=== PATIENT | female | born 1940 | race Caucasian/White ===

== ENCOUNTER → 2016-11-02 | Outpatient (CLI) | payer MEDICARE, BC ==
[2016-11-02 10:09] LABS: CH 29.3; CHCM 31.2; HCT 37.3 % (34.0-46.0); HDW 2.61; HGB 11.3 gm/dL (11.4-16.0); Hypochromasia Slight; MCH 28.6 pg (25.0-35.0); MCHC 30.3 g/dL (31.0-37.0); MCV 94.6 fL (80.0-100.0); Mean Platelet Volume 9.8; RBC 3.94 m/uL (3.80-5.40); RDW 13.8 % (11.5-15.5); WBC 9.2 k/uL (3.8-10.6)
[2016-11-02 10:15] LABS: Potassium 4.9 mmol/L (3.5-5.1)
== END | disposition home or self-care (01) ==
LOC: LABPAT 09:43
PROVIDERS: ATTEND Internal Medicine Interventional Cardiology
DX: Z01.812 Encounter for preprocedural laboratory examination (principal); I25.10 Atherosclerotic heart disease of native coronary artery without angina pectoris
CPT/HCPCS: 80051; 82565; 84520; 85027

== ENCOUNTER 2016-11-14 07:51 | Day surgery (SDC) | payer MEDICARE, BC ==
[2016-11-09 10:35] VITALS: BMI 34.7
[~2016-11-14 07:51] MED LIST: ALPRAZolam 0.25 MG TAB PO PRN; ALPRAZolam 0.5 MG TAB PO PRN; ASPIRIN 325 MG TAB PO STA; ATORVASTATIN 80 MG TAB PO STA; NITROGLYCERIN SL TABS 0.4 MG TAB SUBLINGUAL PRN
[2016-11-14 08:35] LABS: Glucose,Whole Blood 139 mg/dL (75-99)
[2016-11-14 09:00] LABS: Calcium 8.8 mg/dL (8.4-10.2)
[2016-11-14 09:19] LABS: Potassium 5.3 mmol/L (3.5-5.1)
[2016-11-14] MEDS ORDERED: SODIUM CHLORIDE 0.9% 1,000 ML in EMPTY BAG 1 BAG IV ONE (10:00)
[2016-11-14] MEDS ORDERED: diphenhydrAMINE 50 MG/ML 1 ML VIAL ONE (12:14)
[2016-11-14] MEDS ORDERED: LIDOCAINE 2% INJ 20 MG/ML (20 ML MDV) ONE (12:14)
[2016-11-14] MEDS ORDERED: MIDAZOLAM 2 MG/2 ML VIAL ONE (12:19)
[2016-11-14] MEDS ORDERED: diphenhydrAMINE 50 MG/ML 1 ML VIAL IVP ONE (12:24)
[2016-11-14] MEDS ORDERED: MIDAZOLAM 2 MG/2 ML VIAL IV ONE (12:25)
[2016-11-14] MEDS ORDERED: LIDOCAINE 2% INJ 20 MG/ML SQ ONE (12:26)
[2016-11-14] MEDS ORDERED: hydrALAZINE HCL 20 MG/ML 1 ML VIAL ONE (12:40)
[2016-11-14] MEDS: hydrALAZINE HCL 20 MG/ML 1 ML VIAL IV ONE ×2 (12:41→12:50)
[2016-11-14] MEDS ORDERED: IODIXANOL 320 MG/ML 100 ML INTRAARTER ONE (12:44)
[2016-11-14] MEDS ORDERED: RX INFO: IV CONTRAST WAS GIVEN 1 EACH MISC MISCELLANE PRN (12:51)
[2016-11-14] MEDS ORDERED: SODIUM CHLORIDE 0.9% 1,000 ML IV SCH (13:00)
[2016-11-14 13:25] VITALS: RESP 16
[2016-11-14] MEDS ORDERED: ACETAMINOPHEN TAB 325 MG TAB PO PRN (14:29)
[2016-11-14 20:55] VITALS: BP 120/42; PULSE 86; TEMP 99.6
--- NOTE | 2016-11-15 09:04 | CC ---
DATE OF SERVICE: 2016. PERFORMING PHYSICIAN: Tomas Mckinnon forensic document examiner. PROCEDURE PERFORMED: 1. Selective left and right coronary angiogram. 2. SVG angiogram x2. 3. Left intramammary artery angiogram. INDICATION: This is a pleasant 76-year-old female patient who is known to have coronary artery disease and prior coronary artery bypass grafting withy MARTI to LAD, SVG to ramus and SVG to RCA, was experiencing chest discomfort and she underwent myocardial perfusion imaging stress test which showed ischemia. Approach: Left common femoral artery. COMPLICATIONS: None. Level of sedation: Moderate. PROCEDURE DESCRIPTION: After obtaining informed consent, the patient was brought for cardiac. The left common femoral artery was cannulated micropuncture technique. The micropuncture wire passed easily. Then I placed 6 Nicaraguan sheath in the left common femoral artery. Subsequently I did selective left and right coronary angiogram using JL4 and JR4 catheters. Then I did SVG angiogram x2 using the JR4 catheter. Then MARTI to LAD was performed also. Angiogram was performed using the JR4 catheter. The procedure was completed without any complication. CORONARY ANGIOGRAM: 1. Left main the left main is calcified with disease in the range of 60%. It bifurcates into the left anterior descending artery and the left circumflex. 2. Left anterior descending artery is chronically occluded in the proximal portion. 3. The left circumflex is chronically occluded in the midportion. 4. The right coronary artery is occluded in the midportion as well. CORONARY BYPASS ANGIOGRAM: 1. The SVG to ramus is patent. 2. The SVG to RCA is patent. 3. MARTI to LAD is patent as well. CONCLUSION: 1. Severe triple-vessel coronary artery disease with occluded left anterior descending coronary artery, left circumflex and right coronary artery. 2. Patent left internal mammary artery to left anterior descending coronary artery. 3. Patent saphenous vein graft to ramus. 4. Patent saphenous vein graft to right coronary artery. 5. Findings unchanged compared to before. POSTPROCEDURE MANAGEMENT: 1. Maximize medical treatment. 2. Follow up with the patient.
== END 2016-11-14 20:45 | disposition home or self-care (01) ==
LOC: CATHCVL 07:51 → 3OBS 12:45 → CATHCVL 20:45
PROVIDERS: ATTEND Internal Medicine Interventional Cardiology
DX: I25.110 Atherosclerotic heart disease of native coronary artery with unstable angina pectoris (principal); R94.39 Abnormal result of other cardiovascular function study; Z95.1 Presence of aortocoronary bypass graft; Z95.5 Presence of coronary angioplasty implant and graft; I73.9 Peripheral vascular disease, unspecified; Z95.820 Peripheral vascular angioplasty status with implants and grafts; Z89.512 Acquired absence of left leg below knee; Z89.511 Acquired absence of right leg below knee; Z99.3 Dependence on wheelchair; I10 Essential (primary) hypertension; E78.5 Hyperlipidemia, unspecified; Z79.01 Long term (current) use of anticoagulants; Z79.82 Long term (current) use of aspirin; Z79.4 Long term (current) use of insulin; Z79.899 Other long term (current) drug therapy; Z88.5 Allergy status to narcotic agent; Z88.8 Allergy status to other drugs, medicaments and biological substances; Z87.891 Personal history of nicotine dependence
CPT/HCPCS: 93455; 80048; 99152; C1769 ×3; C1894; J2001; J2250; J0360; J1200; Q9967

== ENCOUNTER → 2016-12-21 | Outpatient (CLI) | payer MEDICARE, BC ==
[2016-12-21 15:50] LABS: Blood Urea Nitrogen 19 mg/dL (7-17); Non-African American GFR(MDRD) 52 (>60 ml/min/1.73 sqM)
--- NOTE | 2016-12-21 16:56 | CT ---
CT angiogram of the abdominal aorta with and without contrast HISTORY: Postop date of exam bypass graft Correlation to angiogram 05 Feb 2014 Helical acquisition obtained from the descending aorta through the lower extremities following contra st menstruation. 3-dimensional reconstructions performed on an alternate workstation. Descending aorta is patent. There is atheromatous plaque within the lumen. The celiac axis, superior mesenteric artery, renal arteries are patent. Common iliac, internal iliac arteries are patent. The l eft external iliac artery is patent, the right external iliac arteries occluded. There is a femoral t o femoral bypass graft which is patent. Distal to the anastomosis on the right the deep femoral arter ies are patent, superficial femoral artery shows a proximal stenosis but is patent and shows atheroma tous change. Peroneal artery on the right, proximal anterior tibial artery are patent. Anterior tibia l artery is not seen distally to be patent, posterior tibial artery is occluded. Peroneal artery is p atent to the level of the ankle. On the left the superficial femoral arteries occluded, deep femoral artery branches are patent and th e more distal branches in the leg are poorly enhanced. There is a hiatal hernia. Gallstone is thought present within the gallbladder. Degenerative disc tejada ges, facet arthropathy noted in the lower lumbar spine. IMPRESSION: Patent femoral to femoral bypass graft, extensive peripheral vascular occlusive disease. Additional findings above.
== END | disposition home or self-care (01) ==
LOC: RADCTMAIN 14:43
PROVIDERS: ATTEND Thoracic Surgery (Cardiothoracic Vascular Surgery)
DX: I73.9 Peripheral vascular disease, unspecified (principal); Z95.828 Presence of other vascular implants and grafts
CPT/HCPCS: 82565; 84520; 75635; 36415; Q9967

== ENCOUNTER → 2017-01-05 | Outpatient (CLI) | payer MEDICARE, BC ==
[2017-01-05 08:40] LABS: CH 29.4; CHCM 30.4; HCT 35.7 % (34.0-46.0); HDW 2.38; Hypochromasia Moderate; MCH 30.1 pg (25.0-35.0); MCHC 30.9 g/dL (31.0-37.0); MCV 97.3 fL (80.0-100.0); Mean Platelet Volume 9.4; RBC 3.67 m/uL (3.80-5.40); RDW 13.7 % (11.5-15.5); WBC 7.3 k/uL (3.8-10.6)
== END | disposition home or self-care (01) ==
LOC: LABPAT 08:02
PROVIDERS: ATTEND Internal Medicine Interventional Cardiology
DX: I73.9 Peripheral vascular disease, unspecified (principal)
CPT/HCPCS: 80051; 82565; 84520; 85027

== ENCOUNTER 2017-01-10 06:26 | Day surgery (SDC) | payer MEDICARE, BC ==
[2017-01-06 14:06] VITALS: BMI 30.2
[~2017-01-10 06:26] MED LIST changes: -ALPRAZolam 0.5 MG TAB PO PRN; -ATORVASTATIN 80 MG TAB PO STA; -NITROGLYCERIN SL TABS 0.4 MG TAB SUBLINGUAL PRN; +SODIUM CHLORIDE 0.9% 1,000 ML in EMPTY BAG 1 BAG IV ONE
[2017-01-10] MEDS ORDERED: SODIUM CHLORIDE 0.9% 500 ML IV ONE (07:00)
[2017-01-10 07:22] LABS: Glucose,Whole Blood 164 mg/dL (75-99)
[2017-01-10] MEDS ORDERED: MIDAZOLAM 2 MG/2 ML VIAL IV ONE (08:06)
[2017-01-10] MEDS ORDERED: LIDOCAINE 2% INJ 20 MG/ML SQ ONE (08:15)
[2017-01-10] MEDS: VERAPAMIL SYRINGE (5 MG/10 ML) INTRAARTER ONE ×2 (08:17→08:38)
[2017-01-10] MEDS ORDERED: IODIXANOL 320 MG/ML 100 ML INTRAARTER ONE (08:39)
[2017-01-10] MEDS ORDERED: SODIUM CHLORIDE 0.9% 1,000 ML IV SCH (09:15)
[2017-01-10 10:23] VITALS: TEMP 98
--- NOTE | 2017-01-10 10:43 | LTR ---
January 10, 2017 RE: Sujey Washburn Dear [place]; Ms. Sujey Washburn underwent a peripheral angiogram which showed patent fem-fem bypass with a sluggish flow. I do feel that the patient will benefit from doing balloon angioplasty of her left external iliac artery/left common femoral artery to increase the inflow to the bypass. Of course, this plan will be discussed with Dr. Castillo who is the primary physician seeing her regarding PAD. I want to thank you for allowing me to participate in her care and please do not hesitate to call if you have any question or concerns. Sincerely, ZOILA VILLA MD
--- NOTE | 2017-01-10 10:45 | IR ---
Fluoroscopy HISTORY: Pain 5 minutes 23 seconds fluoroscopy time supplied to the referring clinician. 319 intraoperative C-arm images document the procedure. See dictated report from cardiology.
--- NOTE | 2017-01-10 10:46 | PCN ---
DATE OF PROCEDURE: 01/10/2017 PERFORMING PHYSICIAN: Tomas Mckinnon MD, char filter operator. PROCEDURE PERFORMED: 1. Abdominal aortogram. 2. Bilateral lower extremity runoff. INDICATION: This is a pleasant 76-year-old female patient who is known to have severe peripheral arterial disease where she underwent in the past left iliac stenting and then she underwent a left to right fem-fem bypass was seen and evaluated by Dr. Castillo who was concerned about the flow in the fem-fem bypass. The angiogram is to have better clarification. APPROACH: Right radial artery. COMPLICATIONS: None. LEVEL OF SEDATION: Moderate. PROCEDURE DESCRIPTION: After obtaining informed consent, the patient was brought to the cardiac specialist employee labor relations. Right radial artery was cannulated using micropuncture technique. The micropuncture wire passed easily, then I placed a 5 Canadian sheath in the right radial artery. Subsequently, I gave the patient 3000 units of heparin IV and 2 mg of verapamil IA. I did after that an abdominal aortogram and bilateral lower extremity runoff using 5 Canadian pigtail catheter which was initially placed at the level of the renal arteries then it was advanced into above the bifurcation of the aorta to right and left common iliac arteries. The procedure was completed without any complication. SELECTIVE PERIPHERAL ANGIOGRAM: 1. The abdominal aorta is calcified with mild disease only. 2. Common iliac arteries: The right and left common iliac arteries appear to be patent. 3. External iliac arteries: The right external iliac artery appeared to be occluded and the left external iliac artery appeared to be stented with what seems to be severe disease just distal to the stent. 4. Common femoral arteries: The right common femoral artery appeared to be occluded and the left common femoral artery appeared to have severe disease. There was fem-fem bypass appeared to be patent with a sluggish flow. 5. The profunda: The right profunda is patent as well as the left profunda with severe disease involving the left profunda. 6. SFA: The right SFA is diffusely diseased up to about 70% to 80%. The left SFA is occluded from the ostium all the way to the popliteal and I was unable to visualize it after that. 7. The popliteals: The right popliteal appeared to have mild disease only and the left popliteal is occluded. 8. Below the knee: On the right side, she has only one vessel runoff below the knee with peroneal and on the left side, she has left [id number] amputation. CONCLUSION: 1. Severe aortoiliac disease with occluded right external iliac artery and severe disease involving the left external iliac artery. 2. Patent but sluggish flow in the left to right femorofemoral bypass. 3. Severe disease involving the right superficial femoral artery. POSTPROCEDURE MANAGEMENT: The angiogram will be evaluated by Dr. Castillo. I do feel that the patient will benefit from balloon angioplasty of the left external iliac/left common femoral artery to increase the inflow to the bypass.
[2017-01-10 13:15] VITALS: PULSE 55
[2017-01-10 16:10] VITALS: BP 150/70; RESP 20
== END 2017-01-10 15:30 | disposition home or self-care (01) ==
LOC: CATHCVL 06:26
PROVIDERS: ATTEND Internal Medicine Interventional Cardiology
DX: I73.9 Peripheral vascular disease, unspecified (principal); I74.5 Embolism and thrombosis of iliac artery; I77.9 Disorder of arteries and arterioles, unspecified; I74.8 Embolism and thrombosis of other arteries; I70.0 Atherosclerosis of aorta; Z95.820 Peripheral vascular angioplasty status with implants and grafts; I25.10 Atherosclerotic heart disease of native coronary artery without angina pectoris; Z95.1 Presence of aortocoronary bypass graft; Z95.5 Presence of coronary angioplasty implant and graft; R94.39 Abnormal result of other cardiovascular function study; I10 Essential (primary) hypertension; E78.5 Hyperlipidemia, unspecified; Z89.512 Acquired absence of left leg below knee; Z89.511 Acquired absence of right leg below knee; Z99.3 Dependence on wheelchair; Z79.02 Long term (current) use of antithrombotics/antiplatelets; Z79.82 Long term (current) use of aspirin; Z79.4 Long term (current) use of insulin; Z79.899 Other long term (current) drug therapy; Z88.5 Allergy status to narcotic agent; Z88.8 Allergy status to other drugs, medicaments and biological substances; Z87.891 Personal history of nicotine dependence
CPT/HCPCS: 99152; 99153 ×2; 36200; 75625; 75716; C1769 ×4; C1894 ×2; J2001; J2250; Q9967; J1644

== ENCOUNTER 2017-02-22 10:13 | Day surgery (SDC) | payer MEDICARE, BC ==
[2017-02-10 10:40] VITALS: BMI 32.9
[~2017-02-22 10:13] MED LIST changes: -ALPRAZolam 0.25 MG TAB PO PRN
[2017-02-22 10:50] LABS: Glucose,Whole Blood 82 mg/dL (75-99)
[2017-02-22 11:02] LABS: Calcium 8.9 mg/dL (8.4-10.2)
[2017-02-22] MEDS ORDERED: MIDAZOLAM 2 MG/2 ML VIAL IV ONE (13:07)
[2017-02-22] MEDS ORDERED: LIDOCAINE 2% INJ 20 MG/ML SQ ONE (13:09)
[2017-02-22] MEDS: VERAPAMIL SYRINGE (5 MG/10 ML) INTRAARTER ONE ×2 (13:11→13:49)
[2017-02-22] MEDS ORDERED: NITROGLYCERIN 1000MCG/10ML SYRINGE IV ONE (13:46)
[2017-02-22] MEDS ORDERED: niCARdipine Syringe (1,000 mcg/10 mL) IV ONE (13:47)
[2017-02-22] MEDS ORDERED: IODIXANOL 320 MG/ML 100 ML INTRAARTER ONE (13:50)
[2017-02-22] MEDS ORDERED: SODIUM CHLORIDE 0.9% 1,000 ML IV SCH (14:00)
[2017-02-22] MEDS: ACETAMINOPHEN TAB 325 MG TAB PO PRN (16:21)
[2017-02-22 16:50] LABS: Glucose,Whole Blood 146 mg/dL (75-99)
[2017-02-22] MEDS: INSULIN LISPRO (humaLOG) 300 UNIT/3 ML VIAL SQ SCH ×2 (17:53→21:33)
[2017-02-22] MEDS: GABAPENTIN 300 MG CAP PO SCH ×2 (17:53→21:33)
[2017-02-22 20:53] LABS: Glucose,Whole Blood 156 mg/dL (75-99)
[2017-02-22] MEDS ORDERED: ATORVASTATIN 80 MG TAB PO SCH (21:00)
[2017-02-22] MEDS ORDERED: PANTOPRAZOLE 40 MG TABLET PO SCH (21:00)
[2017-02-22] MEDS: METOPROLOL TARTRATE 25 MG TAB PO SCH (21:33)
[2017-02-23] MEDS: ACETAMINOPHEN TAB 325 MG TAB PO PRN (04:25)
[2017-02-23 04:53] VITALS: TEMP 97.2
--- NOTE | 2017-02-23 05:43 | PCN ---
DATE OF PROCEDURE: 02/22/2017 PERCUTANEOUS PERIPHERAL INTERVENTION PERFORMING PHYSICIAN: Tomas Mckinnon MD, control systems drafting officer. PROCEDURE PERFORMED: 1. Selective right common femoral artery angiogram. 2. An attempted atherectomy of the right common femoral artery. 3. Successful balloon angioplasty of the right common femoral artery using 5.0 x 40 mm AngioSculpt balloon with excellent angiographic results. INDICATION: This is a pleasant 76-year-old female patient who is known to have peripheral arterial disease where she underwent in the past stenting of the left external iliac artery as well as fem-fem bypass was seen and evaluated by Dr. Castillo and was found to have sluggish flow through the bypass by Doppler. She underwent after that a peripheral angiogram which showed severe disease involving the inflow to the fem-fem bypass. The disease was involving the ( ) distal left external and distal left common femoral artery. She was brought today to undergo balloon angioplasty. APPROACH: Right radial artery. COMPLICATIONS: None. LEVEL OF SEDATION: Moderate with sedation length of 46 minutes. PROCEDURE DESCRIPTION: After obtaining an informed consent, the patient was brought to the cardiac logging rafter laborer. Right radial artery was cannulated using micropuncture technique and micropuncture wire passed easily, then I placed 6 Swazi sheath in the right radial artery. Subsequently, I gave the patient 2 mg of verapamil IA as well as 8000 units of heparin IV. After that, I did advance an 0.035 advantage wire through the radial sheath on the right side all the way to the distal abdominal aorta just above the bifurcation into right and left common iliac arteries. Then I did exchange my 11 cm 6 Swazi sheath into a 110 cm 6 Swazi sheath over the advantage wire. The tip of the sheath was positioned in the left common iliac artery. After that, I exchange my 0.035 advantage wire into 0.014 advantage wire. Subsequently, I tried to advance the TurboHawk atherectomy device but the device would not reach the lesion, so at that point, I did use an AngioSculpt balloon which was 5.0 x 40 mm, which was inflated under its nominal pressure 3 times in the left common femoral artery. The following angiogram showed good angiographic results. After that, I did pull the long sheath from the right radial artery and I did TR band pressure. The procedure was completed without any completion. POSTPROCEDURE MANAGEMENT: 1. Dual antiplatelet therapy. 2. Risk factor modifications. 3. Follow up with the patient.
--- NOTE | 2017-02-23 05:47 | LTR ---
February 22, 2017 YESSICA MARIO MD RE: Sujey Washburn Dear [place]: Ms. Sujey Washburn was seen and evaluated yesterday by Dr. Castillo who did an arterial duplex study which showed sluggish flow in the fem-fem bypass he performed in the past. He suspected an in-flow disease involving the left common femoral artery and asked me to perform an angiogram on her. I did an angiogram on her which showed indeed severe disease involving the left common femoral artery making the flow to the bypass very sluggish. I brought the patient today and she underwent successful balloon angioplasty of the left common femoral artery with a good angiographic result and without any complication. I want to thank you and thank Dr. Castillo for allowing me to participate in her care and please do not hesitate to call if you have any question or concern. Sincerely, ZOILA VILLA MD
[2017-02-23 06:14] LABS: Glucose,Whole Blood 162 mg/dL (75-99)
[2017-02-23] MEDS: INSULIN LISPRO (humaLOG) 300 UNIT/3 ML VIAL SQ SCH ×2 (06:57→11:53)
[2017-02-23] MEDS: METOPROLOL TARTRATE 25 MG TAB PO SCH (08:05)
[2017-02-23] MEDS: GABAPENTIN 300 MG CAP PO SCH (08:05)
[2017-02-23] MEDS ORDERED: ISOSORBIDE MONONITRATE ER 30 MG TAB.ER.24H PO SCH (09:00)
[2017-02-23] MEDS ORDERED: LISINOPRIL 10 MG TAB PO SCH (09:00)
[2017-02-23] MEDS ORDERED: CLOPIDOGREL 75 MG TAB PO SCH (09:00)
[2017-02-23] MEDS ORDERED: FOLIC ACID 1 MG TAB PO SCH (09:00)
[2017-02-23] MEDS ORDERED: ASPIRIN 325 MG TAB PO SCH (09:00)
[2017-02-23 09:24] LABS: Hemoglobin A1C 7.9 % (4.2-6.1)
[2017-02-23 11:57] LABS: Glucose,Whole Blood 308 mg/dL (75-99)
[2017-02-23 12:46] VITALS: BP 136/60; PULSE 61; RESP 16
--- NOTE | 2017-02-24 09:08 | DS ---
DATE OF ADMISSION: 02/22/2017 DATE OF DISCHARGE: 02/23/2017 BRIEF HISTORY: This is a pleasant 76-year-old female patient who was admitted to the hospital yesterday and underwent successful balloon angioplasty of the left external and left common femoral artery with a good angiographic result and without any complication. The procedure was performed from the right radial artery. The patient is going to be discharged home today on dual antiplatelet therapy and I will follow up with the patient as an outpatient in the office.
--- NOTE | 2017-02-24 12:26 | IR ---
Fluoroscopy HISTORY: Pain 13 minutes 6 seconds fluoroscopy time supplied to the referring clinician. 271 intraoperative C-arm images document the procedure. See dictated report from cardiology.
== END 2017-02-23 14:49 | disposition home or self-care (01) ==
LOC: CATHCVL 10:13 → 6SEL 13:53 → CATHCVL 02-23 14:49
PROVIDERS: ATTEND Internal Medicine Interventional Cardiology
DX: I73.9 Peripheral vascular disease, unspecified (principal); Z95.820 Peripheral vascular angioplasty status with implants and grafts; I74.5 Embolism and thrombosis of iliac artery; I25.10 Atherosclerotic heart disease of native coronary artery without angina pectoris; E78.5 Hyperlipidemia, unspecified; I10 Essential (primary) hypertension; Z89.512 Acquired absence of left leg below knee; Z89.511 Acquired absence of right leg below knee; Z99.3 Dependence on wheelchair; Z95.1 Presence of aortocoronary bypass graft; Z79.02 Long term (current) use of antithrombotics/antiplatelets; Z79.82 Long term (current) use of aspirin; Z79.4 Long term (current) use of insulin; Z79.899 Other long term (current) drug therapy; Z88.5 Allergy status to narcotic agent; Z88.8 Allergy status to other drugs, medicaments and biological substances; Z87.891 Personal history of nicotine dependence
CPT/HCPCS: 37220; 80048; 83036; 82565; 99152; 99153 ×2; C1725; C1769 ×3; C1894 ×2; C1714; J2001; J2250; Q9967; J1644

== ENCOUNTER → 2017-08-18 | Outpatient (CLI) | payer BC, MEDICARE ==
--- NOTE | 2017-08-18 08:42 | US ---
EXAMINATION TYPE: US abdomen comp/pelvis limited DATE OF EXAM: 08/18/2017 COMPARISON: CT angio 12/21/2016, US renal 2012 CLINICAL HISTORY: 76-year-old female R94.5 ABN RESULTS OF LFT. TECHNIQUE: Multiple sonographic images of the abdomen and bladder were obtained. FINDINGS: SENIOR CIVIL ENGINEER NOTES: Difficult and limited exam due to overlying bowel gas and patient body habitus Liver Length: 12.1 cm Gallbladder Wall: 0.5 cm CBD: 4.1 mm Spleen: 10.5 cm Right Kidney: 10.3 x 4.5 x4.4 cm Left Kidney: 10.3 x 5.1 x 4.1 cm Pancreas: Limited visualization due to overlying bowel, Visualized portions appear wnl. Fluid filled stomach and peristalsing bowel visualized superior to pancreas Liver: Difficult and limited examination. Coarse, heterogeneous echotexture Gallbladder: Echogenic foci visualized in neck measuring 0.9 cm. Gallbladder wall is mildly thickene d but there is no abnormal distention or pericholecystic fluid. CBD: wnl as visualized, distal portion is obscured by bowel gas Spleen: wnl Right Kidney: No hydronephrosis. Left Kidney: No hydronephrosis. Upper IVC: wnl Abd Aorta: Atherosclerotic changes Bladder: wnl IMPRESSION: 1. Coarse and slightly heterogeneous echotexture of the liver. Findings could represent nonspecific u nderlying hepatocellular disease. 2. Cholelithiasis and mild gallbladder wall thickening. Chronic cholecystitis not excluded. HIDA scan can BE considered if indicated.
== END ==
LOC: RADUSWWP 06:59
PROVIDERS: ATTEND Family Medicine
DX: K76.9 Liver disease, unspecified (principal); K80.20 Calculus of gallbladder without cholecystitis without obstruction; D64.9 Anemia, unspecified; N18.3 Chronic kidney disease, stage 3 (moderate); Z12.11 Encounter for screening for malignant neoplasm of colon
CPT/HCPCS: 76700; 76857

== ENCOUNTER → 2017-10-12 | Outpatient (CLI) | payer MEDICARE, BC ==
[2017-10-12 10:55] LABS: Basophils % (A) 0 %; Eosinophils # (A) 0.1 k/uL (0-0.7); Eosinophils % (A) 2 %; HCT 34.1 % (34.0-46.0); Hypochromasia Moderate; Lymphocytes % (A) 19 %; MCH 27.8 pg (25.0-35.0); MCHC 29.2 g/dL (31.0-37.0); Mean Platelet Volume 9.4; Monocytes # (A) 0.3 k/uL (0-1.0); Monocytes % (A) 6 %; Neutrophils # (A) 3.5 k/uL (1.3-7.7); Neutrophils % (A) 69 %; Platelet Count 147 k/uL (150-450); RBC 3.59 m/uL (3.80-5.40); RDW 14.7 % (11.5-15.5); WBC 5.1 k/uL (3.8-10.6)
[2017-10-12 11:11] LABS: Albumin 3.7 g/dL (3.5-5.0); Calcium 9.1 mg/dL (8.4-10.2); Potassium 4.9 mmol/L (3.5-5.1); Total Bilirubin 0.4 mg/dL (0.2-1.3); Total Protein 7.3 g/dL (6.3-8.2)
== END | disposition home or self-care (01) ==
LOC: LABWHC1 10:19
PROVIDERS: ATTEND Surgery
DX: K81.1 Chronic cholecystitis (principal)
CPT/HCPCS: 36415; 80053; 82150; 85025

== ENCOUNTER → 2017-11-08 | Day surgery (SDC) | payer MEDICARE, BC ==
[2017-10-30 08:55] VITALS: BMI 32.9
[~2017-11-08] MED LIST changes: +ACETAMINOPHEN TAB 325 MG TAB PO ONE; -ASPIRIN 325 MG TAB PO STA; +BUPIVACAINE (PF) 0.5% 30 ML VIAL SQ ONE; +DEXAMETHASONE SOD PHOSPHATE 10 MG/ML 1 ML VIAL IV ONE; +ETOMIDATE 2 MG/ML 10 ML VIAL ONE; +GLYCOPYRROLATE 0.2 MG/ML 2 ML VIAL ONE; +HEPARIN SODIUM,PORCINE 5,000 UNIT/ML 1 ML VIAL SQ ONE; +HYDROcodone/APAP 5-325MG 1 EACH TAB PO PRN; +LABETALOL 5 MG/ML VIAL MDV ONE; +LACTATED RINGERS 1,000 ML IV SCH; +LIDOCAINE 1% INJ 10MG/ML (20 ML MDV) ONE; +MIDAZOLAM 2 MG/2 ML VIAL ONE; +NALOXONE 0.4 MG/ML 1 ML VIAL IV PRN; +NEOSTIGMINE 1 MG/ML 10 ML VIAL ONE; +ONDANSETRON 4 MG/2 ML VIAL IVP ONE; +ROCURONIUM BROMIDE 10 MG/ML 10 ML VIAL IV ONE; -SODIUM CHLORIDE 0.9% 1,000 ML in EMPTY BAG 1 BAG IV ONE; +SUCCINYLCHOLINE CHLORIDE 100 MG/5 ML SYR IV ONE; +ceFAZolin IN SWFI 2 GM/20 ML SYRINGE IVP ONE; +ePHEDrine SULFATE/0.9% NACL/PF 50 MG/5 ML SYRINGE IV ONE; +fentaNYL (PF) 50 MCG/ML 2 ML AMP ONE
[2017-11-08 08:45] LABS: Glucose,Whole Blood 86 mg/dL (75-99)
[2017-11-08 08:52] LABS: Basophils % (A) 0 %; Eosinophils # (A) 0.3 k/uL (0-0.7); Eosinophils % (A) 3 %; HCT 35.5 % (34.0-46.0); HGB 10.6 gm/dL (11.4-16.0); Hypochromasia Marked; Lymphocytes # (A) 2.1 k/uL (1.0-4.8); Lymphocytes % (A) 24 %; MCH 28.2 pg (25.0-35.0); MCHC 29.7 g/dL (31.0-37.0); MCV 94.9 fL (80.0-100.0); Mean Platelet Volume 9.3; Monocytes # (A) 0.4 k/uL (0-1.0); Monocytes % (A) 5 %; Neutrophils # (A) 5.5 k/uL (1.3-7.7); Neutrophils % (A) 65 %; Platelet Count 172 k/uL (150-450); RBC 3.74 m/uL (3.80-5.40); RDW 14.3 % (11.5-15.5); WBC 8.5 k/uL (3.8-10.6)
--- NOTE | 2017-11-08 10:57 | P.OP ---
Date of Procedure: 11/08/17 Procedure(s) Performed: PREOPERATIVE DIAGNOSIS: Chronic cholecystitis POSTOPERATIVE DIAGNOSIS: Same with liver nodularity PROCEDURE: Laparoscopic cholecystectomy SURGEON: Js EBL: Minimal see anesthesia record ANESTHESIA: Gen. COMPLICATIONS: None OPERATIVE PROCEDURE: The patient was brought and placed on the operating room table in the supine position. The patient was placed under general anesthesia at that time. The abdomen was prepped and draped in the usual sterile fashion. A small vertical infraumbilical incision was made. The fascia was grasped with the Lon forceps. The fascia was retracted anteriorly. The Veress needle was advanced into the peritoneal cavity. The saline drop test was normal. Insufflation took place up to 15 mmHg. A 5 mm optical trocar was advanced and the peritoneal cavity. 2 additional 5 mm trochars were placed in the right upper quadrant under direct visualization. A 10 mm trocar was advanced into the epigastric incision site this was later switched to a 12 mm trocar. Patient's liver was noted be nodular and indurated consistent with some degree of chronic disease. The gallbladder was retracted superiorly and laterally. The peritoneum overlying the infundibulum was bluntly dissected. The patient's cystic duct was visualized. The junction between the cystic duct common and hepatic duct was identified. The cystic duct was somewhat prominent. For that reason a 12 mm clipper was utilized. The cystic duct was then divided after placement of 3 12 mm clips on the patient's side and one on the specimen side. The cystic artery was identified and clipped as well. A small vessel was seen along the gallbladder fossa and clipped as well. The gallbladder was then removed from the liver bed using electrocautery. The gallbladder was then removed from the epigastric trocar site with an Endo Catch bag. The gallbladder fossa was irrigated with saline. There was no evidence of any bleeding or biliary drainage seen. The trochars were then removed. The fascia at the 12 millimeter site was closed using a Jorge-William 0 Vicryl stitch. The skin at all 4 sites was closed using a 4-0 Monocryl stitch. At the end of this procedure the sponge and needle counts were correct. DISPOSITION: Stable to the recovery room. If the patient's liver enzymes increase further consider GI evaluation for liver disease.
[2017-11-08 11:01] VITALS: TEMP 96.8
[2017-11-08] MEDS: HYDROmorphone 2 MG/ML 1 ML SYRINGE IVP ONE ×4 (11:19→11:55)
[2017-11-08 12:11] LABS: Glucose,Whole Blood 164 mg/dL (75-99)
[2017-11-08 15:33] VITALS: BP 157/88; PULSE 70; RESP 18
== END ==
LOC: OR 08:09
PROVIDERS: ATTEND Surgery
DX: K80.10 Calculus of gallbladder with chronic cholecystitis without obstruction (principal); K76.9 Liver disease, unspecified; R74.8 Abnormal levels of other serum enzymes; E11.9 Type 2 diabetes mellitus without complications; N28.9 Disorder of kidney and ureter, unspecified; K21.9 Gastro-esophageal reflux disease without esophagitis; E78.5 Hyperlipidemia, unspecified; I10 Essential (primary) hypertension; I70.203 Unspecified atherosclerosis of native arteries of extremities, bilateral legs; I25.10 Atherosclerotic heart disease of native coronary artery without angina pectoris; Z95.820 Peripheral vascular angioplasty status with implants and grafts; Z89.512 Acquired absence of left leg below knee; Z89.511 Acquired absence of right leg below knee; Z99.3 Dependence on wheelchair; Z95.1 Presence of aortocoronary bypass graft; I25.2 Old myocardial infarction; Z86.73 Personal history of transient ischemic attack (TIA), and cerebral infarction without residual deficits; Z88.5 Allergy status to narcotic agent; Z88.8 Allergy status to other drugs, medicaments and biological substances; Z79.02 Long term (current) use of antithrombotics/antiplatelets; Z79.82 Long term (current) use of aspirin; Z79.4 Long term (current) use of insulin; Z79.899 Other long term (current) drug therapy; Z87.891 Personal history of nicotine dependence
CPT/HCPCS: 88304; 85025; 47562; J2250; J1170; J1644; J1100; J2710; J2405; J2001; J3010; J0330; J0690

== ENCOUNTER → 2017-12-11 | Outpatient (CLI) | payer MEDICARE, BC ==
--- NOTE | 2017-12-12 08:52 | US ---
EXAMINATION TYPE: US kidneys/renal and bladder DATE OF EXAM: 12/11/2017 COMPARISON: NONE CLINICAL HISTORY: R31.9 Hematuria. 1 episode of hematuria 1 month ago EXAM MEASUREMENTS: Right Kidney: 10.1 x 4.3 x 5.0 cm Left Kidney: 10.1 x 5.2 x 4.2 cm *Technical limitations due to overlying bowel content Right Kidney: no evidence of hydronephrosis Left Kidney: no evidence of hydronephrosis Bladder: appears wnl Bilateral Jets seen: yes There is no evidence for hydronephrosis at this point in time. No nephrolithiasis is seen. No nellie s are identified. The urinary bladder is anechoic. Bilateral ureteral jets are seen. IMPRESSION: No evidence of hydronephrosis, nephrolithiasis or sonographic evidence of renal mass. If there is fur ther clinical concern CT urogram could BE performed.
== END | disposition home or self-care (01) ==
LOC: RADUSWWP 10:45
PROVIDERS: ATTEND Family Medicine
DX: R31.9 Hematuria, unspecified (principal)
CPT/HCPCS: 76770

== ENCOUNTER 2018-05-20 03:02 | Emergency (ER) | payer MEDICARE, BC ==
[2018-05-20 03:10] VITALS: BP 178/87; PULSE 79; RESP 18; TEMP 98
[2018-05-20] MEDS ORDERED: GELATIN SPONGE,ABSORB (LARGE) 1 EACH SPONGE TOPICAL STA (03:36)
[2018-05-20] MEDS ORDERED: SILVER NITRATE APPLICATOR 1 EACH STICK..EA. TOPICAL STA (03:36)
[2018-05-20] MEDS ORDERED: DIPH,PERTUS(ACELL)TETVAC-LF 0.5 ML VIAL IM ONE (03:36)
--- NOTE | 2018-05-20 03:55 | ED ---
Wound/Laceration HPI - General Chief Complaint: Wound/Laceration Stated Complaint: finger lac Time Seen by Provider: 05/20/18 03:27 Source: patient Mode of arrival: wheelchair Limitations: physical limitation - History of Present Illness Initial Comments: Sujey is a 77 yo female who presents to the ed today for evaluation of laceration to her left index finger. 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 Patient is on Plavix and full dose aspirin. She reports that she's applied direct pressure but the finger has continued to ooze for 2 hours at which time she decided to come to the ER for further evaluation. Patient states that her last tetanus exudation was probably greater than 20 years ago and that she would like to have one today. - Related Data Home Medications Medication Instructions Recorded Confirmed RX: Gabapentin [Neurontin] 600 mg PO TID 02/03/14 05/20/18 RX: Isosorbide Mononitrate [Imdur] 30 mg PO QAM 02/03/14 05/20/18 RX: Metoprolol Tartrate [Lopressor] 25 mg PO BID 02/03/14 05/20/18 RX: Pantoprazole Sodium [Protonix] 40 mg PO HS 02/03/14 05/20/18 RX: Ramipril [Altace] 2.5 mg PO QAM 02/03/14 05/20/18 RX: Insulin Glargine,Hum.rec.anlog 45 units SQ HS 04/02/14 05/20/18 [Lantus Solostar] RX: Folic Acid 1 mg PO DAILY 05/07/14 05/20/18 Ferrous Sulfate [Feosol] 325 mg PO DAILY 11/01/17 05/20/18 Previous Rx's Medication Instructions Recorded RX: Atorvastatin [Lipitor] 80 mg PO HS #30 tab 02/20/14 RX: Aspirin 325 mg PO DAILY #90 tab 02/02/16 RX: Clopidogrel [Plavix] 75 mg PO DAILY #90 tab 02/02/16 Docusate [Colace] 100 mg PO BID #20 capsule 11/08/17 HYDROcodone/APAP 7.5-325MG [[place] 1 each PO Q4H PRN #30 tab 11/08/17 7.5] Hydrocodone/Acetaminophen [[place] 1 - 2 each PO Q4HR PRN #20 tab 11/08/17 5-325] Allergies Allergy/AdvReac Type Severity Reaction Status Date / Time dulaglutide [From [facility]] Allergy Nausea & Verified 05/20/18 03:10 Vomiting & Diarrhea codeine AdvReac Unknown Wheezing Verified 05/20/18 03:10 and COLEMAN Review of Systems ROS Statement: Those systems with pertinent positive or pertinent negative responses have been documented in the HPI. ROS Other: All systems not noted in ROS Statement are negative. Past Medical History Past Medical History: Coronary Artery Disease (CAD), Chest Pain / Angina, CVA/ TIA, Diabetes Mellitus, GERD/Reflux, Hyperlipidemia, Hypertension, Myocardial Infarction (VT), Musculoskeletal Disorder, Skin Disorder, Vascular Disorder, Vascular Disorder Additional Past Medical History / Comment(s): neuropathy, uses wheelchair Last Myocardial Infarction Date:: 2010 History of Any Multi-Drug Resistant Organisms: C-DIFF, MRSA Date of last positivie culture/infection: 01/18/12 MDRO Source:: [place] GREAT TOES Past Surgical History: Breast Surgery, Coronary Bypass/CABG, Heart Catheterization, Orthopedic Surgery, Tubal Ligation Additional Past Surgical History / Comment(s): amputation of one toe on each foot, stent rt leg, fem/fem bypass CABGx4, Left BKA, "1/2 OF RT FOOT AMPUTATED" 2013 RT BREAST NIPPLE BX BENIGN, [place] CAROTIDENDARTECTOMY 2006. ANGIOGRAM Past Anesthesia/Blood Transfusion Reactions: Previous Problems w/ Anesthesia Additional Past Anesthesia/Blood Transfusion Reaction / Comment(s): diff time waking up Past Psychological History: No Psychological Hx Reported Smoking Status: Former smoker Past Alcohol Use History: None Reported Past Drug Use History: None Reported - Past Family History Sister(s) Family Medical History: Cancer Mother Family Medical History: Cancer Additional Family Medical History / Comment(s): Breast CA General Exam Limitations: physical limitation Course Vital Signs 05/20/18 03:05 Temperature 98 F Pulse Rate 79 Respiratory 18 Rate Blood Pressure 178/87 O2 Sat by Pulse 96 Oximetry Procedures - Laceration Laceration #1 Consent Obtained: verbal consent Indication: other (skin avulsion) Site: upper extremity, hand Description: avulsion Depth: simple, single layer Anesthetic Used: lidocaine 1%, with epi Anesthesia Technique: local infiltration Amount (mls): 1 (0.25 mls) Pre-repair: wound explored Patient Tolerated Procedure: well Additional Comments: Small amount 0.25mls lido with epi infused locally for analgesia and hemostasis silver nitrate applied to avulsion with good hemostasis Medical Decision Making - Medical Decision Making Patient with a small skin avulsion with continuous capillary oozing patient is on full dose aspirin and Plavix daily She reports 2 hours of bleeding, direct pressure was applied for 30 minutes and patient continued to have oozing of blood Finger was anesthetized with a 0.25 mL's of lidocaine with epinephrine was infused bleeding controlled with silver nitrate dressing applied patient advised to keep finger dry, elevated Patient advised to continue her home plavix and aspirin All questions pertaining to care were answered and patient was discharged home in stable condition Disposition Clinical Impression: Laceration Disposition: HOME SELF-CARE Condition: Good Instructions: Laceration (ED) Is patient prescribed a controlled substance at d/c from ED?: No Referrals: Nany Nielsen III, MD [Primary Care Provider] - 1-2 days
== END 2018-05-20 04:09 | disposition home or self-care (01) ==
LOC: EC 03:02
DX: S61.211A Laceration without foreign body of left index finger without damage to nail, initial encounter (principal); I10 Essential (primary) hypertension; I25.10 Atherosclerotic heart disease of native coronary artery without angina pectoris; E11.40 Type 2 diabetes mellitus with diabetic neuropathy, unspecified; K21.9 Gastro-esophageal reflux disease without esophagitis; I25.2 Old myocardial infarction; Z87.891 Personal history of nicotine dependence; Z88.5 Allergy status to narcotic agent; Z88.8 Allergy status to other drugs, medicaments and biological substances; Z79.02 Long term (current) use of antithrombotics/antiplatelets; Z79.4 Long term (current) use of insulin; Z79.82 Long term (current) use of aspirin; Z79.899 Other long term (current) drug therapy; Z86.73 Personal history of transient ischemic attack (TIA), and cerebral infarction without residual deficits; Z86.79 Personal history of other diseases of the circulatory system; Z23 Encounter for immunization; W45.8XXA Other foreign body or object entering through skin, initial encounter; Y93.89 Activity, other specified; Y92.009 Unspecified place in unspecified non-institutional (private) residence as the place of occurrence of the external cause
CPT/HCPCS: 90471; 90715; 99282

== ENCOUNTER 2018-11-24 23:46 | Inpatient (IN) | payer MEDICARE, BC ==
[2018-11-24] MEDS ORDERED: ASPIRIN 81 MG PO STA (23:53)
--- NOTE | 2018-11-24 23:58 | ED ---
Chest Pain HPI - General Chief Complaint: Chest Pain Stated Complaint: chest pain,weakness Time Seen by Provider: 11/24/18 23:53 Source: patient, family Mode of arrival: ambulatory Limitations: no limitations - History of Present Illness Initial Comments: Sujey is a pleasant 78-year-old female with extensive past medical history most giving ipecac for known coronary artery disease status post CABG and multiple stents in addition the patient has known peripheral artery disease and is status post amputation of the left lower extremity. Patient presents the emergency department today for evaluation of chest pain and shortness of breath. Initially patient reported that she been experiencing chest pain intermittently throughout the day today however on reevaluation she is stating that she's been having chest pain intermittently since yesterday but today it significantly worsening and she's developed significant shortness of breath. Patient reports despite having known coronary artery disease she's never been told that she has congestive heart failure. Throughout the day today she's had progressively worsening shortness of breath and pressure-like retrosternal chest pain. - Related Data Home Medications Medication Instructions Recorded Confirmed Gabapentin [Neurontin] 600 mg PO TID 02/03/14 05/20/18 Isosorbide Mononitrate [Imdur] 30 mg PO QAM 02/03/14 05/20/18 Metoprolol Tartrate [Lopressor] 25 mg PO BID 02/03/14 05/20/18 Pantoprazole Sodium [Protonix] 40 mg PO HS 02/03/14 05/20/18 Ramipril [Altace] 2.5 mg PO QAM 02/03/14 05/20/18 Insulin Glargine,Hum.rec.anlog 45 units SQ HS 04/02/14 05/20/18 [Lantus Solostar] Folic Acid 1 mg PO DAILY 05/07/14 05/20/18 Ferrous Sulfate [Feosol] 325 mg PO DAILY 11/01/17 05/20/18 Previous Rx's Medication Instructions Recorded Atorvastatin [Lipitor] 80 mg PO HS #30 tab 02/20/14 Aspirin 325 mg PO DAILY #90 tab 02/02/16 Clopidogrel [Plavix] 75 mg PO DAILY #90 tab 02/02/16 Docusate [Colace] 100 mg PO BID #20 capsule 11/08/17 HYDROcodone/APAP 7.5-325MG [Oketo 1 each PO Q4H PRN #30 tab 11/08/17 7.5] Hydrocodone/Acetaminophen [Oketo 1 - 2 each PO Q4HR PRN #20 tab 11/08/17 5-325] Allergies Allergy/AdvReac Type Severity Reaction Status Date / Time [facility] Allergy Nausea & Verified 11/24/18 23:53 Vomiting & Diarrhea codeine AdvReac Unknown Wheezing Verified 11/24/18 23:53 and [facility] Review of Systems ROS Statement: Those systems with pertinent positive or pertinent negative responses have been documented in the HPI. ROS Other: All systems not noted in ROS Statement are negative. EKG Findings - EKG Comments: EKG Findings:: Initial EKG obtained at 12:03 AM, rate is 101 and rhythm is sinus tachycardia, there significant respiratory movement artifact however there is significant ST depressions in leads 12 aVL as well as depressions in V4 5 and 6. There appears to be ST elevations in aVR will plan to make the patient more comfortable and repeat EKG. Repeat EKG was obtained at [address] depressions in leads [address] elevations in aVR and V1 and ST depressions in V3 45 and 6. This is concerning for an acute MD. When compared to EKG from 2016. The ST depressions are new with ST elevations in aVR are new. Patient is experiencing 8 out of 10 chest pain. STEMI was activated Past Medical History Past Medical History: Coronary Artery Disease (CAD), Chest Pain / Angina, CVA/ TIA, Diabetes Mellitus, GERD/Reflux, Hyperlipidemia, Hypertension, Myocardial Infarction (MD), Musculoskeletal Disorder, Skin Disorder, Vascular Disorder, Vascular Disorder Additional Past Medical History / Comment(s): neuropathy, uses wheelchair Last Myocardial Infarction Date:: 2010 History of Any Multi-Drug Resistant Organisms: C-DIFF, MRSA Date of last positivie culture/infection: 01/18/12 MDRO Source:: SANAM GREAT TOES Past Surgical History: Breast Surgery, Coronary Bypass/CABG, Heart Catheterization, Orthopedic Surgery, Tubal Ligation Additional Past Surgical History / Comment(s): amputation of one toe on each foot, stent rt leg, fem/fem bypass CABGx4, Left BKA, "1/2 OF RT FOOT AMPUTATED" 2013 RT BREAST NIPPLE BX BENIGN, SANAM CAROTIDENDARTECTOMY 2006. ANGIOGRAM Past Anesthesia/Blood Transfusion Reactions: Previous Problems w/ Anesthesia Additional Past Anesthesia/Blood Transfusion Reaction / Comment(s): diff time waking up Past Psychological History: No Psychological Hx Reported Smoking Status: Former smoker Past Alcohol Use History: None Reported Past Drug Use History: None Reported - Past Family History Sister(s) Family Medical History: Cancer Mother Family Medical History: Cancer Additional Family Medical History / Comment(s): Breast CA General Exam - General Exam Comments Initial Comments: Physical Exam GENERAL: Chronically ill-appearing elderly female appears uncomfortable HENT: Normocephalic, Atraumatic. EYES: PERRL, EOMI PULMONARY: Rales bilaterally CARDIOVASCULAR: Regular rate and rhythm ABDOMEN: Soft and nontender with normal bowel sounds. SKIN: Pale : Deferred NEUROLOGIC: Patient is alert and oriented x3. Moving all extremities spontaneously MUSCULOSKELETAL: Left lower extremity below knee amputation PSYCHIATRIC: Normal psychiatric evaluation. Limitations: no limitations Limitations: no limitations Course Vital Signs 11/24/18 11/25/18 11/25/18 23:49 00:28 00:30 Temperature 98.8 F Pulse Rate 99 92 96 Pulse Rate [ Left] Respiratory 20 18 18 Rate Blood Pressure 100/53 124/66 91/39 Blood Pressure [Right Arm] O2 Sat by Pulse 93 L 98 97 Oximetry 11/25/18 11/25/18 11/25/18 00:37 00:45 00:51 Temperature Pulse Rate 96 96 96 Pulse Rate [ Left] Respiratory 18 18 18 Rate Blood Pressure 133/65 140/66 75/64 Blood Pressure [Right Arm] O2 Sat by Pulse 98 97 97 Oximetry 11/25/18 11/25/18 11/25/18 01:00 03:00 03:10 Temperature 99 F 98.8 F Pulse Rate 80 79 Pulse Rate [ 82 Left] Respiratory 20 19 Rate Blood Pressure 118/58 116/54 Blood Pressure 116/54 [Right Arm] O2 Sat by Pulse 97 97 Oximetry 11/25/18 11/25/18 11/25/18 03:20 03:30 03:40 Temperature Pulse Rate 80 80 84 Pulse Rate [ Left] Respiratory 17 21 15 Rate Blood Pressure 116/54 116/54 116/54 Blood Pressure [Right Arm] O2 Sat by Pulse 96 100 98 Oximetry 11/25/18 11/25/18 11/25/18 03:45 03:50 04:00 Temperature 98.8 F Pulse Rate 81 83 Pulse Rate [ 84 Left] Respiratory 18 15 16 Rate Blood Pressure 116/54 116/54 Blood Pressure 127/61 [Right Arm] O2 Sat by Pulse 99 99 99 Oximetry Chest Pain MDM - MDM The patient was seen and evaluated history is obtained from the patient and family at bedside and review of medical records This is a 70-year-old female who appears to be in acute heart failure on physical exam initial EKG was concerning for ischemia however has significant respiratory artifact Repeat EKG was obtained and is suggestive of acute myocardial infarction. STEMI activated - clinical laboratory assistant notified Patient care discussed with Dr. Hauser and Dr Noble who will take patient to cath Patient remained hemodynamically stable upon transfer to the [facility] Critical [facility] Time Critical Care Time: Yes Total Critical Care Time: 20 Critical Care Time: Critical care time was exclusive of separately billable procedures and treating other patients and teaching time. Critical care was necessary to treat or prevent imminent or life-threatening deterioration. Critical care was time spent personally by me on the following activities: development of treatment plan with patient or surrogate, discussions with consultants, discussions with primary provider, evaluation of patient's response to treatment, examination of patient, obtaining history from patient or surrogate, ordering and performing treatments and interventions, ordering and review of laboratory studies, ordering and review of radiographic studies, pulse oximetry, re-evaluation of patient's condition and review of old charts. Disposition Clinical Impression: ST elevation myocardial infarction (STEMI), Heart failure, Anemia Disposition: ADMITTED IP TO THIS HOSP Condition: Serious Is patient prescribed a controlled substance at d/c from ED?: No
[2018-11-25] MEDS ORDERED: HEPARIN SODIUM,PORCINE 5,000 UNIT/ML 1 ML VIAL IV PRN (00:08)
[2018-11-25] MEDS ORDERED: HEPARIN SODIUM,PORCINE 5,000 UNIT/ML 1 ML VIAL IV ONE (00:08)
[2018-11-25] MEDS ORDERED: NITROGLYCERIN SL TABS 0.4 MG TAB SUBLINGUAL STA (00:09)
[2018-11-25 00:16] LABS: Basophils % (A) 0 %; Eosinophils % (A) 0 %; HCT 26.3 % (34.0-46.0); HGB 8.1 gm/dL (11.4-16.0); Hypochromasia Marked; Lymphocytes # (A) 1.3 k/uL (1.0-4.8); Lymphocytes % (A) 11 %; MCH 31.5 pg (25.0-35.0); MCV 101.5 fL (80.0-100.0); Macrocytosis Slight; Mean Platelet Volume 8.7; Monocytes # (A) 0.5 k/uL (0-1.0); Monocytes % (A) 4 %; Neutrophils # (A) 10.3 k/uL (1.3-7.7); Neutrophils % (A) 84 %; Platelet Count 150 k/uL (150-450); RBC 2.59 m/uL (3.80-5.40); RDW 15.6 % (11.5-15.5); WBC 12.3 k/uL (3.8-10.6)
--- NOTE | 2018-11-25 00:23 | XR ---
EXAM: XR Chest, 2 Views CLINICAL HISTORY: ITS.REASON XR Reason: Chest Pain TECHNIQUE: Frontal and lateral views of the chest. COMPARISON: 04/19/14 chest x-ray IMPRESSION: Mild cardiomegaly. Patchy opacity in the right lower lobe, possibly representing infectious process or edema. Bibasilar atelectasis. Possible trace right pleural effusion.
[2018-11-25 00:24] LABS: Albumin 3.7 g/dL (3.5-5.0); Calcium 9.1 mg/dL (8.4-10.2); Potassium 5.4 mmol/L (3.5-5.1); Total Bilirubin 0.6 mg/dL (0.2-1.3); Total Protein 6.8 g/dL (6.3-8.2)
[2018-11-25 00:25] LABS: Partial Thromboplastin Time 22.5 sec (22.0-30.0); Prothrombin Time 11.1 sec (9.0-12.0)
[2018-11-25] MEDS ORDERED: INSULIN REGULAR 100 UNIT/ML VIAL SQ ONE (00:37)
[2018-11-25] MEDS ORDERED: NALOXONE 0.4 MG/ML 1 ML VIAL IV PRN (00:38)
[2018-11-25] MEDS ORDERED: fentaNYL (PF) 50 MCG/ML 2 ML AMP ONE (01:09)
[2018-11-25] MEDS ORDERED: LIDOCAINE 1% INJ 10MG/ML (20 ML MDV) ONE (01:09)
[2018-11-25] MEDS: HEPARIN SOD,PORK IN 0.45% NACL 25,000 UNIT in 0.45% NACL 1 250ML.BAG IV SCH (01:09)
[2018-11-25] MEDS ORDERED: VERAPAMIL 2.5 MG/ML 2 ML AMP ONE (01:12)
[2018-11-25] MEDS ORDERED: VERAPAMIL SYRINGE (5 MG/10 ML) INTRAARTER ONE (01:20)
[2018-11-25] MEDS ORDERED: fentaNYL (PF) 50 MCG/ML 2 ML AMP IV ONE (01:20)
[2018-11-25] MEDS ORDERED: LIDOCAINE 1% INJ 10MG/ML (20 ML MDV) SQ ONE (01:20)
[2018-11-25] MEDS ORDERED: SODIUM CHLORIDE 0.9% 1,000 ML IV ONE (01:21)
[2018-11-25] MEDS ORDERED: BIVALIRUDIN BOLUS 250 MG/50 ML IV ONE (01:29)
[2018-11-25] MEDS ORDERED: BIVALIRUDIN 250 MG in SODIUM CHLORIDE 0.9% 50 ML IV ONE (01:30)
[2018-11-25] MEDS ORDERED: ONDANSETRON 4 MG/2 ML VIAL ONE (01:43)
[2018-11-25] MEDS ORDERED: ONDANSETRON 4 MG/2 ML VIAL IVP ONE (01:44)
[2018-11-25] MEDS ORDERED: NITROGLYCERIN 1000MCG/10ML SYRINGE INTRAARTER ONE (01:48)
[2018-11-25] MEDS ORDERED: IOPAMIDOL-370 150ML BTL INJ ONE (01:58)
[2018-11-25] MEDS ORDERED: IOPAMIDOL-370 100ML BTL INJ ONE (02:02)
[2018-11-25] MEDS ORDERED: NITROGLYCERIN SL TABS 0.4 MG TAB SUBLINGUAL PRN (02:32)
[2018-11-25] MEDS ORDERED: ATROPINE SULFATE 0.1 MG/ML 10ML SYRINGE IV PRN (02:32)
[2018-11-25] MEDS ORDERED: RX INFO: IV CONTRAST WAS GIVEN 1 EACH MISC MISCELLANE PRN (02:32)
[2018-11-25] MEDS ORDERED: MAG HYDROX/AL HYDROX/SIMETH 30 ML CUP PO PRN (02:32)
[2018-11-25] MEDS ORDERED: ZOLPIDEM 5 MG TAB PO PRN (02:32)
[2018-11-25] MEDS ORDERED: SODIUM CHLORIDE 0.9% 1,000 ML IV SCH (02:45)
[2018-11-25 02:55] LABS: Glucose,Whole Blood 262 mg/dL (75-99)
[2018-11-25 06:54] LABS: Glucose,Whole Blood 220 mg/dL (75-99)
[2018-11-25] MEDS: INSULIN ASPART (NovoLOG) 100 UNIT/ML VIAL SQ SCH ×4 (07:12→21:16)
[2018-11-25] MEDS: ASPIRIN 81 MG PO SCH (08:01)
[2018-11-25] MEDS: GABAPENTIN 300 MG CAP PO SCH ×2 (08:01→16:58)
[2018-11-25] MEDS: METOPROLOL TARTRATE 25 MG TAB PO SCH ×2 (08:01→23:57)
[2018-11-25] MEDS: FERROUS SULFATE 325 MG TAB PO SCH (08:01)
--- NOTE | 2018-11-25 08:10 | CC ---
CARDIAC CATHETERIZATION REPORT Ms. Washburn 78-year-old female with a known history of coronary artery disease, status post bypass grafting, percutaneous revascularization, history of severe peripheral disease who presented with symptoms of chest discomfort and ST-segment elevation. She was evaluated by Dr. Hauser and recommendation made regarding cardiac catheterization. The procedure as well as risks and complications were discussed with the patient who is in full understanding and agreement. PROCEDURE: Patient was brought to the laboratory technician in a fasting semisedated state after receiving fentanyl and Benadryl and achieving moderate conscious sedated state. Using Xylocaine anesthesia and Seldinger technique, a a 6-Estonian sheath was introduced in the left radial artery. Selective right and left angiography was performed. 5-Estonian 4 bend right and left Danni catheter. Multiple views of the coronary artery including hemiaxial views obtained. Subsequently the right Danni catheter was used to cannulate the saphenous vein graft to the OM, PDA, and MARTI to LAD. Images of the grafts were obtained. Following that, angioplasty and stenting were performed. Following that, a 6-Estonian tight pigtail catheter was introduced in the left ventricle and pressures were calculated. Following that, catheter and sheaths were removed. Hemostasis was obtained with deployment of a TR band. There was no immediate complication. Patient was returned to her room in stable condition. FINDING: LEFT MAIN: This vessel is subtotally occluded, has a 99% stenosis throughout its course. It bifurcate in the left circumflex and the left anterior descending artery. LEFT ANTERIOR DESCENDING ARTERY: This vessel is subtotally occluded proximally with no significant flow antegrade. It is diffusely diseased. LEFT CIRCUMFLEX: This vessel appears to be occluded totally and is diffusely disease in the proximal segment. RIGHT CORONARY ARTERY: This is a diffusely diseased vessel throughout its course, could be a dominant vessel, although not well visualized. There is no significant antegrade flow. SAPHENOUS VEIN GRAFT TO THE PDA. This graft is large, it is subtotally occluded in the proximal segment and cheesh-na vessels are small in caliber and diffusely diseased. SAPHENOUS VEIN GRAFT TO THE OBTUSE MARGINAL BRANCH: The proximal anastomotic site is patent. The distal anastomotic site is patent. There is a 99% stenosis at the anastomosis. The vessel beyond that is small in caliber. MARTI to LAD: The distal anastomotic site is patent. The flow in the LAD is brisk. The LAD is diffusely disease. LEFT VENTRICULOGRAM: Left ventriculogram is not performed. HEMODYNAMICS: There was no gradient across the aortic valve. The left ventricular end-diastolic pressure was 20 to 24 mmHg. CONCLUSION: 1. Severe triple-vessel coronary artery disease. 2. Patent MARTI to LAD. 3. Patent saphenous vein graft to the obtuse marginal branch with significant stenosis at the distal anastomotic site with small size vessel. 4. Patent saphenous vein graft to the PDA with subtotally occluded ostium. RECOMMENDATION: In view of the findings, I have recommended proceeding with angioplasty and stenting. The procedure as well as risks and complications were discussed with the patient who is in full understanding and agreement. MMODL / IJN: [id number] /
--- NOTE | 2018-11-25 08:16 | CC ---
CARDIAC CATHETERIZATION REPORT Ms. Washburn is a 78-year-old female with known history of coronary artery disease status post coronary artery bypass grafting and percutaneous revascularization, history of severe peripheral disease with prior amputation and fem-fem bypass, who presented with non ST-segment elevation myocardial infarction, underwent cardiac catheterization and was found to have a subtotally occluded saphenous vein graft to the PDA at the site of the prior stenting. In view of that, recommendation was made regarding angioplasty and stenting. The procedure as well as risks and complications were discussed with the patient who is in full understanding and agreement. PROCEDURE: Attempt to cannulate the ostium of the graft using a 6-Congolese FR4 guiding catheter was unsuccessful. That catheter was exchanged to 6-Congolese left coronary bypass guide. The graft was totally occluded. Attempt to advance a 0.014 balanced medium weight J-wire through the total occlusion were unsuccessful. That was removed and a 0.014 whisper J- wire with a FineCross catheter was advanced. The wire was positioned distally. After removing the FineCross catheter, 2.5 x 12 mm Trek balloon was advanced and two inflations at 10 atmospheres were done. Following that, the balloon was removed and a 3.0 x 15 mm Xience Geovanna stent was deployed, it was dilated at 16 atmospheres. Following that, the balloon was removed and a 3.5 x 8 mm Xience Geovanna stent was deployed proximal to the first one at the ostium and was post dilated at 16 atmospheres. Following that, the balloon was removed and a 4.0 x 15 mm NC Trek balloon was advanced and two inflations at a maximum of 16 atmospheres were done. After the last inflation, after appropriate wait, the balloon and the guidewire were withdrawn back in the guiding catheter. Images were obtained and repeated. Those images revealed stable successful stenting. At that point, the guiding catheter, the balloon and the guidewire were removed and a left ventricle end-diastolic pressure was measured. Following that, catheter and sheath were removed. Hemostasis was obtained with deployment of a TR band. There was no immediate complication. Patient is returned to her room in stable condition. Of note, the patient received Angiomax per protocol and was continued on clopidogrel. RESULTS: Successful stenting of a totally occluded ostium of the saphenous vein graft to the PDA at the site of the prior stent with reduction of stenosis from 100% to 0%. RECOMMENDATION: Patient will be continued on aspirin, Plavix, beta eugenie, and statin. The importance of dual antiplatelet treatment were discussed with the patient her family and they are in full understanding and agreement. Duration of procedure: 66 minutes. CHOCO / SILVERION: [id number] /
[2018-11-25] MEDS ORDERED: LISINOPRIL 10 MG TAB PO SCH (09:00)
[2018-11-25 10:01] LABS: Appearance,Urine Clear (Clear); Bacteria,Urine Rare /hpf; Bilirubin,Urine Negative (Negative); Blood,Urine Moderate (Negative); Color,Urine Yellow; Glucose,Urine (UA) Negative (Negative); Ketones,Urine Negative (Negative); Leukocyte Esterase,Urine Negative (Negative); Mucus,Urine Rare /hpf; Nitrite,Urine Negative (Negative); PH, Urine 5.5 (5.0-8.0); Protein,Urine Trace (Negative); RBC,Urine 3 /hpf (0-5); Squamous Epithelial Cell,Urine 1 /hpf (0-4); Urobilinogen,Urine <2.0 mg/dL (<2.0)
[2018-11-25 10:07] LABS: Specific Gravity,Urine >1.050 (1.001-1.035)
--- NOTE | 2018-11-25 10:55 | P.PN ---
Subjective Progress Note Date: 11/25/18 This is a 78-year-old female with history of coronary artery disease and previous bypass surgery and also percutaneous revascularization and severe peripheral vascular disease with prior fem-fem bypass who was admitted to the hospital with ST elevation myocardial infarction. She had a cardiac catheterization by Dr. Noble through left radial approach. She was found to have subtotal occluded vein graft to the PDA at the site of the previous stent placement. Patient had a repeat stent placement. Patient is feeling better. Denies any chest pain. Doesn't complain of any shortness of breath. Vital signs are stable. The puncture site appears to be stable. Will increase her activity. We'll get an echo [place] tomorrow. Continue current medical therapy. Possible transfer to selective care tomorrow Objective - Vital Signs Vital signs: Vital Signs Temp 98.0 F 11/25/18 08:00 Pulse 89 11/25/18 09:00 Resp 20 11/25/18 09:00 BP 132/76 11/25/18 09:00 Pulse Ox 98 11/25/18 09:00 Intake & Output 11/24/18 11/25/18 11/25/18 18:59 06:59 18:59 Intake Total 639.5 440 Output Total 110 100 Balance 529.5 340 Weight 81.647 kg Intake: IV 639.5 200 Sodium Chloride 0.9% 1, 500 200 000 ml @ 100 mls/hr IV . Q10H [facility] Rx#:[id number] Oral 240 Output: Urine 110 100 - Exam GENERAL EXAM: Patient is alert and oriented and doesn't appear to be in any acute distress HEENT: Normocephalic. Normal reaction of pupils, equal size, normal range of extraocular motion. No erythema or exudates in the throat. NECK: No masses, no nuchal rigidity. CHEST: No chest wall deformity. LUNGS: Equal air entry with no crackles or wheeze. HEART: S1 and S2 normal with no audible mumurs or gallops. Regular rhythm, femorals equal on both sides.. ABDOMEN: No hepatosplenomegaly, normal bowel sounds, no guarding or rigidity. SKIN: No rashes CENTRAL NERVOUS SYSTEM: No focal deficits. EXTREMITIES: No cyanosis, clubbing or edema. History of amputation. PUNCTURE SITE: The left radial puncture site appears to be stable without any hematoma - Labs CBC & Chem 7: 11/25/18 00:01 11/25/18 00:01 Labs: Abnormal Lab Results - Last 24 Hours (Table) 11/24/18 11/25/18 11/25/18 Range/Units 09:12 00:01 00:01 WBC 12.3 H (3.8-10.6) k/uL RBC 2.59 L (3.80-5.40) m/uL Hgb 8.1 L (11.4-16.0) gm/dL Hct 26.3 L (34.0-46.0) % MCV 101.5 H (80.0-100.0) fL RDW 15.6 H (11.5-15.5) % Neutrophils # 10.3 H (1.3-7.7) k/uL APTT (22.0-30.0) sec Potassium 5.4 H (3.5-5.1) mmol/L BUN 36 H (7-17) mg/dL Creatinine 1.58 H (0.52-1.04) mg/dL Glucose 268 H (74-99) mg/dL POC Glucose (mg/dL) (75-99) mg/dL AST 51 H (14-36) U/L ALT 77 H (9-52) U/L Alkaline Phosphatase 131 H (38-126) U/L Troponin I (0.000-0.034) ng/mL Ur Specific Reagan >1.050 H (1.001-1.035) Urine Protein Trace H (Negative) Urine Blood Moderate H (Negative) Urine Bacteria Rare H (None) /hpf Urine Mucus Rare H (None) /hpf 11/25/18 11/25/18 11/25/18 Range/Units 00:01 02:44 06:12 WBC (3.8-10.6) k/uL RBC (3.80-5.40) m/uL Hgb (11.4-16.0) gm/dL Hct (34.0-46.0) % MCV (80.0-100.0) fL RDW (11.5-15.5) % Neutrophils # (1.3-7.7) k/uL APTT 42.2 H (22.0-30.0) sec Potassium (3.5-5.1) mmol/L BUN (7-17) mg/dL Creatinine (0.52-1.04) mg/dL Glucose (74-99) mg/dL POC Glucose (mg/dL) 262 H (75-99) mg/dL AST (14-36) U/L ALT (9-52) U/L Alkaline Phosphatase (38-126) U/L Troponin I 1.730 H* (0.000-0.034) ng/mL Ur Specific Reagan (1.001-1.035) Urine Protein (Negative) Urine Blood (Negative) Urine Bacteria (None) /hpf Urine Mucus (None) /hpf 11/25/18 11/25/18 Range/Units 06:12 06:43 WBC (3.8-10.6) k/uL RBC (3.80-5.40) m/uL Hgb (11.4-16.0) gm/dL Hct (34.0-46.0) % MCV (80.0-100.0) fL RDW (11.5-15.5) % Neutrophils # (1.3-7.7) k/uL APTT (22.0-30.0) sec Potassium (3.5-5.1) mmol/L BUN (7-17) mg/dL Creatinine (0.52-1.04) mg/dL Glucose (74-99) mg/dL POC Glucose (mg/dL) 220 H (75-99) mg/dL AST (14-36) U/L ALT (9-52) U/L Alkaline Phosphatase (38-126) U/L Troponin I 3.170 H* (0.000-0.034) ng/mL Ur Specific Reagan (1.001-1.035) Urine Protein (Negative) Urine Blood (Negative) Urine Bacteria (None) /hpf Urine Mucus (None) /hpf Assessment and Plan (1) Anemia Current Visit: Yes Status: Acute Code(s): D64.9 - ANEMIA, UNSPECIFIED SNOMED Code(s): 123026218 (2) ST elevation myocardial infarction (STEMI) Current Visit: Yes Status: Acute Code(s): I21.3 - ST ELEVATION (STEMI) MYOCARDIAL INFARCTION OF [facility] SITE SNOMED Code(s): 071817057 (3) Hypertension Current Visit: No Status: Acute Code(s): I10 - ESSENTIAL (PRIMARY) HYPERTENSION SNOMED Code(s): 04825664 (4) PAD (peripheral artery disease) Current Visit: No Status: Acute Code(s): I73.9 - PERIPHERAL VASCULAR DISEASE , UNSPECIFIED SNOMED Code(s): 118863374 Plan: Patient seemed to be doing well. Denies any chest pain or shortness of breath. No arrhythmias. We'll increase activity. Echo in the morning. Transferred to telemetry in the morning
[2018-11-25 11:34] VITALS: BMI 32.9
[2018-11-25] MEDS ORDERED: ONDANSETRON 4 MG/2 ML VIAL IVP STA (12:15)
[2018-11-25 12:28] LABS: Glucose,Whole Blood 237 mg/dL (75-99)
[2018-11-25] MEDS: ACETAMINOPHEN TAB 325 MG TAB PO PRN ×2 (14:53→23:33)
--- NOTE | 2018-11-25 15:27 | P.HPIM ---
History of Present Illness H&P Date: 11/25/18 Chief Complaint: Chest pain This very pleasant 78-year-old female who presents to the ER for evaluation of chest pain. She says that the chest pain started yesterday was intermittent throughout the day yesterday but by the evening about significantly worse. Patient at that time developed significant shortness of breath. She thus comes into the ER through ambulance for further evaluation and management. Apparently in the ER, EKG showed STEMI, therefore cut lab was activated and patient was taken to the labor trainer immediately and had stent placed. Patient was transferred to ICU for further evaluation and monitoring. This morning, the patient is nauseous and was given Zofran. Patient says that she's been having this issue with nausea vomiting since about 1 year and she has intermittently. She otherwise does not complain of any shortness of breath or cough, she said the chest pain is better. She does not complain of any tingling numbness on in the 70s, and additional rest. She does not complain of any lightheadedness or dizziness. Review of Systems All systems: negative Past Medical History Past Medical History: Coronary Artery Disease (CAD), Chest Pain / Angina, CVA/ TIA, Diabetes Mellitus, GERD/Reflux, Hyperlipidemia, Hypertension, Myocardial Infarction (HI), Musculoskeletal Disorder, Skin Disorder, Vascular Disorder, Vascular Disorder Additional Past Medical History / Comment(s): neuropathy, uses wheelchair Last Myocardial Infarction Date:: 2010 History of Any Multi-Drug Resistant Organisms: C-DIFF, MRSA Date of last positivie culture/infection: 01/18/12 MDRO Source:: [place] GREAT TOES Past Surgical History: Breast Surgery, Coronary Bypass/CABG, Heart Catheterization, Orthopedic Surgery, Tubal Ligation Additional Past Surgical History / Comment(s): amputation of one toe on each foot, stent rt leg, fem/fem bypass CABGx4, Left BKA, "1/2 OF RT FOOT AMPUTATED" 2013 RT BREAST NIPPLE BX BENIGN, [place] CAROTIDENDARTECTOMY 2006. ANGIOGRAM Past Anesthesia/Blood Transfusion Reactions: Previous Problems w/ Anesthesia Additional Past Anesthesia/Blood Transfusion Reaction / Comment(s): diff time waking up Past Psychological History: No Psychological Hx Reported Smoking Status: Former smoker Past Alcohol Use History: None Reported Past Drug Use History: None Reported - Past Family History Sister(s) Family Medical History: Cancer Mother Family Medical History: Cancer Additional Family Medical History / Comment(s): Breast CA Medications and Allergies Home Medications Medication Instructions Recorded Confirmed Type Gabapentin [Neurontin] 600 mg PO TID 02/03/14 05/20/18 History Isosorbide Mononitrate [Imdur] 30 mg PO QAM 02/03/14 05/20/18 History Metoprolol Tartrate [Lopressor] 25 mg PO BID 02/03/14 05/20/18 History Pantoprazole Sodium [Protonix] 40 mg PO HS 02/03/14 05/20/18 History Ramipril [Altace] 2.5 mg PO QAM 02/03/14 05/20/18 History Atorvastatin [Lipitor] 80 mg PO HS #30 tab 02/20/14 05/20/18 Rx Insulin Glargine,Hum.rec.anlog 45 units SQ HS 04/02/14 05/20/18 History [Lantus Solostar] Folic Acid 1 mg PO DAILY 05/07/14 05/20/18 History Aspirin 325 mg PO DAILY #90 tab 02/02/16 05/20/18 Rx Clopidogrel [Plavix] 75 mg PO DAILY #90 tab 02/02/16 05/20/18 Rx Ferrous Sulfate [Feosol] 325 mg PO DAILY 11/01/17 05/20/18 History Docusate [Colace] 100 mg PO BID #20 capsule 11/08/17 05/20/18 Rx HYDROcodone/APAP 7.5-325MG [[place] 1 each PO Q4H PRN #30 tab 11/08/17 05/20/18 Rx 7.5] Hydrocodone/Acetaminophen [[place] 1 - 2 each PO Q4HR PRN #20 tab 11/08/17 Rx 5-325] Allergies Allergy/AdvReac Type Severity Reaction Status Date / Time dulaglutide [From [facility]] Allergy Nausea & Verified 11/24/18 23:53 Vomiting & Diarrhea codeine AdvReac Unknown Wheezing Verified 11/24/18 23:53 and [facility] Physical Exam Vitals: Vital Signs Temp Pulse Pulse Resp BP BP Pulse Ox 11/25/18 15:00 76 97 11/25/18 14:00 76 17 97 11/25/18 13:00 72 28 H 115/52 93 L 11/25/18 12:00 97.0 F L 75 22 123/50 94 L 11/25/18 11:00 79 15 128/59 93 L 11/25/18 10:00 87 26 H 126/63 97 11/25/18 09:00 89 20 132/76 98 11/25/18 08:00 98.0 F 87 81 26 H 131/56 98 11/25/18 07:40 89 28 H 131/56 99 11/25/18 07:30 88 11 L 131/56 98 11/25/18 07:20 91 12 131/56 97 11/25/18 07:10 86 16 131/56 98 11/25/18 07:00 86 16 121/67 97 11/25/18 06:50 81 16 121/67 96 11/25/18 06:40 87 27 H 121/67 98 11/25/18 06:30 85 19 121/67 98 11/25/18 06:20 89 30 H 121/67 97 11/25/18 06:15 81 18 121/67 98 11/25/18 06:10 82 21 121/67 98 11/25/18 06:00 83 20 102/77 97 11/25/18 05:50 80 16 102/77 96 11/25/18 05:40 83 26 H 102/77 98 11/25/18 05:30 87 11 L 102/77 99 11/25/18 05:20 84 12 102/77 98 11/25/18 05:15 84 25 H 102/77 98 11/25/18 05:10 80 23 102/77 95 11/25/18 05:00 87 11 L 127/61 11/25/18 04:50 80 23 127/61 98 11/25/18 04:40 83 11 L 127/61 98 11/25/18 04:30 87 17 127/61 96 11/25/18 04:20 84 19 127/61 100 11/25/18 04:15 89 18 127/81 94 L 11/25/18 04:10 83 15 127/61 99 11/25/18 04:00 98.8 F 83 16 116/54 99 11/25/18 03:50 81 15 116/54 99 11/25/18 03:45 84 18 127/61 99 11/25/18 03:40 84 15 116/54 98 11/25/18 03:30 80 21 116/54 100 11/25/18 03:20 80 17 116/54 96 11/25/18 03:10 79 19 116/54 97 11/25/18 03:00 98.8 F 80 82 20 118/58 116/54 97 11/25/18 01:00 99 F 11/25/18 00:51 96 18 75/64 97 11/25/18 00:45 96 18 140/66 97 11/25/18 00:37 96 18 133/65 98 11/25/18 00:30 96 18 91/39 97 11/25/18 00:28 92 18 124/66 98 11/24/18 23:49 98.8 F 99 20 100/53 93 L Intake and Output 11/25/18 11/25/18 11/25/18 06:59 14:59 22:59 Intake Total 639.5 940 100 Output Total 110 360 25 Balance 529.5 580 75 Intake: IV 639.5 700 100 Sodium Chloride 0.9% 1, 500 700 100 000 ml @ 100 mls/hr IV . Q10H [facility] Rx#:[id number] Oral 240 Output: Urine 110 210 25 Emesis 150 Other: Weight 81.647 kg 81.647 kg On exam, alert and oriented x3. HEENT: Conjunctivae normal. eyes normal. NECK: No JVD. No thyroid enlargement. No LNs CARDIOVASCULAR: S1, S2 positive RESPIRATION: Breath sounds diminished in the bases. No rhonchi or crackles. No bronchial breathing. ABDOMEN: Soft, nontender . No guarding. no masses palpable. No ascites, No hepatosplenomegaly.Bowel sounds heard. LEGS: No edema. no swelling NERVOUS SYSTEM: Cranial N 2-12 grossly normal. Moves all 4 limbs. No focal deficits. No sensory deficit. No signs of cerebellar dysfucntion. Skin: no ulcer no rash Results CBC & Chem 7: 11/25/18 00:01 11/25/18 00:01 Labs: Abnormal Lab Results - Last 24 Hours (Table) 11/24/18 11/25/18 11/25/18 Range/Units 09:12 00:01 00:01 WBC 12.3 H (3.8-10.6) k/uL RBC 2.59 L (3.80-5.40) m/uL Hgb 8.1 L (11.4-16.0) gm/dL Hct 26.3 L (34.0-46.0) % MCV 101.5 H (80.0-100.0) fL RDW 15.6 H (11.5-15.5) % Neutrophils # 10.3 H (1.3-7.7) k/uL APTT (22.0-30.0) sec Potassium 5.4 H (3.5-5.1) mmol/L BUN 36 H (7-17) mg/dL Creatinine 1.58 H (0.52-1.04) mg/dL Glucose 268 H (74-99) mg/dL POC Glucose (mg/dL) (75-99) mg/dL AST 51 H (14-36) U/L ALT 77 H (9-52) U/L Alkaline Phosphatase 131 H (38-126) U/L Troponin I (0.000-0.034) ng/mL Ur Specific [place] >1.050 H (1.001-1.035) Urine Protein Trace H (Negative) Urine Blood Moderate H (Negative) Urine Bacteria Rare H (None) /hpf Urine Mucus Rare H (None) /hpf 11/25/18 11/25/18 11/25/18 Range/Units 00:01 02:44 06:12 WBC (3.8-10.6) k/uL RBC (3.80-5.40) m/uL Hgb (11.4-16.0) gm/dL Hct (34.0-46.0) % MCV (80.0-100.0) fL RDW (11.5-15.5) % Neutrophils # (1.3-7.7) k/uL APTT 42.2 H (22.0-30.0) sec Potassium (3.5-5.1) mmol/L BUN (7-17) mg/dL Creatinine (0.52-1.04) mg/dL Glucose (74-99) mg/dL POC Glucose (mg/dL) 262 H (75-99) mg/dL AST (14-36) U/L ALT (9-52) U/L Alkaline Phosphatase (38-126) U/L Troponin I 1.730 H* (0.000-0.034) ng/mL Ur Specific [place] (1.001-1.035) Urine Protein (Negative) Urine Blood (Negative) Urine Bacteria (None) /hpf Urine Mucus (None) /hpf 11/25/18 11/25/18 11/25/18 Range/Units 06:12 06:43 11:33 WBC (3.8-10.6) k/uL RBC (3.80-5.40) m/uL Hgb (11.4-16.0) gm/dL Hct (34.0-46.0) % MCV (80.0-100.0) fL RDW (11.5-15.5) % Neutrophils # (1.3-7.7) k/uL APTT (22.0-30.0) sec Potassium (3.5-5.1) mmol/L BUN (7-17) mg/dL Creatinine (0.52-1.04) mg/dL Glucose (74-99) mg/dL POC Glucose (mg/dL) 220 H (75-99) mg/dL AST (14-36) U/L ALT (9-52) U/L Alkaline Phosphatase (38-126) U/L Troponin I 3.170 H* 28.400 H* (0.000-0.034) ng/mL Ur Specific [place] (1.001-1.035) Urine Protein (Negative) Urine Blood (Negative) Urine Bacteria (None) /hpf Urine Mucus (None) /hpf 11/25/18 Range/Units 12:17 WBC (3.8-10.6) k/uL RBC (3.80-5.40) m/uL Hgb (11.4-16.0) gm/dL Hct (34.0-46.0) % MCV (80.0-100.0) fL RDW (11.5-15.5) % Neutrophils # (1.3-7.7) k/uL APTT (22.0-30.0) sec Potassium (3.5-5.1) mmol/L BUN (7-17) mg/dL Creatinine (0.52-1.04) mg/dL Glucose (74-99) mg/dL POC Glucose (mg/dL) 237 H (75-99) mg/dL AST (14-36) U/L ALT (9-52) U/L Alkaline Phosphatase (38-126) U/L Troponin I (0.000-0.034) ng/mL Ur Specific [place] (1.001-1.035) Urine Protein (Negative) Urine Blood (Negative) Urine Bacteria (None) /hpf Urine Mucus (None) /hpf Thrombosis Risk Factor Assmnt - Choose All That Apply Any of the Below Risk Factors Present?: Yes Each Factor Represents 1 point: Acute HI, Medical pt on bed rest Other Risk Factors: No Thrombosis Risk Factor Assessment Total Risk Factor Score: 2 Thrombosis Risk Factor Assessment Level: Low Risk Assessment and Plan Assessment: - STEMI status post PCI and stenting - CAD status post CABG previously - Hypertension - Hyperlipidemia - Diabetes - History of CVA - History of GERD Plan - Patient is admitted to ICU - Cardiology on board for the patient. Further recommendations as per cardiology - Continue rest of medications - Patient is nauseous. She is on Zofran to be continued - DVT and GI prophylaxis - We'll order for lab work in the morning - Expected length of stay more than 2 midnights - Patient is full code Time with Patient: Greater than 30
[2018-11-25 17:09] LABS: Glucose,Whole Blood 208 mg/dL (75-99)
[2018-11-25] MEDS: ONDANSETRON 4 MG/2 ML VIAL IVP PRN (18:49)
[2018-11-25 20:45] LABS: Calcium 8.2 mg/dL (8.4-10.2)
[2018-11-25 20:52] LABS: Potassium 6.6 mmol/L (3.5-5.1)
[2018-11-25] MEDS ORDERED: ATORVASTATIN 80 MG TAB PO SCH (21:00)
[2018-11-25] MEDS ORDERED: INSULIN DETEMIR (LEVEMIR) 100 UNIT/ML SYR SQ SCH (21:00)
[2018-11-25 21:03] LABS: Glucose,Whole Blood 181 mg/dL (75-99)
[2018-11-25] MEDS ORDERED: SODIUM BICARB 8.4% 50 ML SYR (1 MEQ/ML) IV ONE (21:17)
[2018-11-25] MEDS ORDERED: ALBUTEROL NEB (CONC) 2.5 MG/0.5 ML INHALATION ONE (21:17)
[2018-11-25] MEDS ORDERED: DEXTROSE 50%-WATER 50 ML SYRINGE IVP ONE (21:17)
[2018-11-25] MEDS ORDERED: INSULIN REGULAR 100 UNIT/ML VIAL IV ONE (21:17)
[2018-11-25] MEDS ORDERED: SODIUM CHLORIDE 0.9% 500 ML 500 ML IV ONE (21:19)
--- NOTE | 2018-11-25 23:39 | CT ---
EXAM: CT Abdomen and Pelvis Without Intravenous Contrast CLINICAL HISTORY: ITS.REASON CT Reason: ABD pain TECHNIQUE: Axial computed tomography images of the abdomen and pelvis without intravenous contrast. CTDI is 20.9 mGy and DLP is 1062.4 mGy-cm. This CT exam was performed using one or more of the following dose reduction techniques: automated exposure control, adjustment of the mA and/or kV according to patient size, and/or use of iterative reconstruction technique. Coronal and sagittal reformatted images were created and reviewed. COMPARISON: 12/21/16 FINDINGS: Lung bases: See below. Pleural space: Bilateral moderate pleural effusions with non-simple density. Bilateral lower lobe airspace disease which could be related to compressive atelectasis, though nonspecific. ABDOMEN: Liver: Slight scalloping of the hepatic contour. Periportal and upper abdominal fat stranding/edema. Gallbladder and bile ducts: Cholecystectomy. No ductal dilation. Pancreas: Unremarkable. No ductal dilation. Spleen: Unremarkable. No splenomegaly. Adrenals: Left adrenal thickening. No dominant mass. Kidneys and ureters: Bilateral perinephric stranding, symmetric. There is enhancement of the renal cortices and contrast within the renal collecting systems, precluding accurate evaluation for nephrolithiasis. No hydronephrosis. Bilateral renal cortical thinning and multifocal small scarring and slight striated appearance. Stomach and bowel: The large and small bowel demonstrate normal course and caliber. No evidence for obstruction. No definitive evidence for focal inflammation. No mucosal thickening. PELVIS: Appendix: Nonvisualized appendix, possibly surgically removed. Bladder: The bladder is only mildly distended, partially decompressed with an indwelling Vazquez catheter. Small focus of air noted in the lumen. No stones. Reproductive: Left pelvic cyst measuring 18 mm, possibly ovarian. ABDOMEN and PELVIS: Intraperitoneal space: Mild free fluid in the lower abdomen as well as dependent pelvis with non-simple density. No free air. Bones/joints: Sternotomy wires. Calcifications at the aortic and mitral valve. Multilevel degenerative disc changes with extensive disc space height loss and osteophytosis. Appearance is relatively stable. No acute fracture. No dislocation. Soft tissues: Small fatty umbilical hernia. Vasculature: Diffuse atherosclerotic changes of the aorta and its branches. Femoral to femoral bypass graft. Characterization of the vasculature otherwise limited on unenhanced imaging. No abdominal aortic aneurysm. Lymph nodes: Enlarged periportal lymph nodes measuring up to short axis caliber of 15 mm, stable. IMPRESSION: 1. Bilateral perinephric stranding which could be related to chronic scarring or edema. Slight striated appearance to the renal cortices, nonspecific due to multifocal scarring though correlate to exclude infiltrative process such as pyelonephritis. There is persistent renal cortical enhancement and contrast within the collecting systems indicating recent IV contrast administration. Correlate clinically. 2. Mild intra-abdominal free fluid with non-simple density which could indicate complex or hemorrhagic component. 3. Nodular periphery of the liver with persistent periportal edema and lymphadenopathy. Query cirrhosis. 4. Moderate pleural effusions with non-simple density. Adjacent airspace disease in the lower lungs could represent compressive atelectasis though nonspecific. 5. Nonacute and incidental findings as above.
[2018-11-26] MEDS: GABAPENTIN 300 MG CAP PO SCH ×2 (00:02→12:03)
[2018-11-26] MEDS ORDERED: PIPERACILLIN-TAZOBACTAM 3.375 GM in SODIUM CHLORIDE 0.9% 100 ML IVPB SCH (01:15)
[2018-11-26] MEDS: HEPARIN SOD,PORK IN 0.45% NACL 25,000 UNIT in 0.45% NACL 1 250ML.BAG IV SCH (01:35)
[2018-11-26] MEDS: METHYL SALICYLATE/MENTHOL CREAM 5 OZ TOPICAL SCH ×2 (01:36→12:03)
[2018-11-26] MEDS: SODIUM CHLORIDE 0.9% 1,000 ML IV SCH ×2 (01:36→12:03)
[2018-11-26] MEDS: ONDANSETRON 4 MG/2 ML VIAL IVP PRN (01:59)
[2018-11-26 02:17] LABS: Glucose,Whole Blood 175 mg/dL (75-99)
[2018-11-26] MEDS ORDERED: CLOPIDOGREL 75 MG TAB PO SCH ×2 (02:33→09:00)
[2018-11-26 03:05] LABS: Anisocytosis Slight; HCT 27.2 % (34.0-46.0); HGB 7.7 gm/dL (11.4-16.0); Hypochromasia Marked; MCH 30.4 pg (25.0-35.0); MCHC 28.3 g/dL (31.0-37.0); Macrocytosis Marked; Mean Platelet Volume 9.1; Platelet Count 191 k/uL (150-450); RBC 2.53 m/uL (3.80-5.40); RDW 16.1 % (11.5-15.5)
[2018-11-26 03:06] LABS: MCV 107.3 fL (80.0-100.0)
[2018-11-26 03:13] LABS: Albumin 3.4 g/dL (3.5-5.0); Alkaline Phosphatase 118 U/L (38-126); Amylase <30 U/L (30-110); Anion Gap 20 mmol/L; Blood Urea Nitrogen 43 mg/dL (7-17); Calcium 8.2 mg/dL (8.4-10.2); Carbon Dioxide 14 mmol/L (22-30); Chloride 106 mmol/L (98-107); Glucose 163 mg/dL (74-99); Lipase 97 U/L (23-300); Potassium 5.4 mmol/L (3.5-5.1); Sodium 140 mmol/L (137-145); Total Bilirubin 0.8 mg/dL (0.2-1.3); Total Protein 6.2 g/dL (6.3-8.2)
[2018-11-26 03:23] LABS: ALT 1079 U/L (9-52); AST 1119 U/L (14-36)
[2018-11-26 03:37] LABS: Lymphocytes # (M) 1.51 k/uL (1.0-4.8); Monocytes # (M) 1.85 k/uL (0-1.0); Myelocytes # (M) 0.17 k/uL (0); Myelocytes % 1 %; Neutrophils # (M) 13.44 k/uL (1.3-7.7); Neutrophils % (M) 80 %; Nucleated Red Blood Cells 1 /100 WBC (0-0); Polychromasia Present; Total Cells Counted 200; WBC 16.8 k/uL (3.8-10.6)
[2018-11-26] MEDS ORDERED: SODIUM CHLORIDE 0.9% 2,000 ML IV ONE (03:58)
[2018-11-26 04:20] LABS: ABG Base Excess -17.3 mmol/L; ABG HCO3 11 mmol/L (21-25); ABG Oxygen Saturation 97.3 % (94-97); ABG PCO2 30 mmHg (35-45); ABG PO2 108 mmHg (83-108); ABG TCO2 12 mmol/L (19-24)
[2018-11-26 04:28] LABS: ABG PH 7.18 (7.35-7.45)
[2018-11-26 04:47] LABS: Glucose,Whole Blood 137 mg/dL (75-99)
[2018-11-26] MEDS ORDERED: PROPOFOL 10 MG/ML 100 ML VIAL IV ONE (04:50)
[2018-11-26] MEDS ORDERED: NOREPINEPHRINE 4 MG in SODIUM CHLORIDE 0.9% 250 ML IV SCH (05:00)
--- NOTE | 2018-11-26 05:50 | XR ---
EXAM: XR Chest, 1 View CLINICAL HISTORY: ITS.REASON XR Reason: respiratory distress TECHNIQUE: Frontal view of the chest. COMPARISON: 11/25/18 FINDINGS: Lungs: Worsening airspace opacities in the lower lobes. Pleural space: Increased size of the bilateral pleural effusions. Heart: Persistent cardiomegaly. Mediastinum: Stable.. Bones/joints: Stable.. Tubes, lines and devices: Nasogastric tube is visualized extending into the abdomen. IMPRESSION: 1. Mildly worsened bilateral pleural effusions and lower lobe airspace disease.
[2018-11-26] MEDS ORDERED: DEXTROSE 5% IN WATER 1,000 ML with SODIUM BICARB (1 MEQ/ML) 150 ML IV SCH (06:00)
[2018-11-26 06:01] LABS: ABG Base Excess -24.7 mmol/L; ABG PCO2 25 mmHg (35-45); ABG PO2 292 mmHg (83-108); ABG TCO2 7 mmol/L (19-24)
[2018-11-26] MEDS ORDERED: SODIUM BICARB 8.4% 50 ML SYR (1 MEQ/ML) ONE ×3 (07:07→13:14)
[2018-11-26] MEDS ORDERED: HEPARIN SODIUM,PORCINE 5,000 UNIT/ML 1 ML VIAL IV PRN (07:12)
[2018-11-26] MEDS ORDERED: HEPARIN SOD,PORK IN 0.45% NACL 25,000 UNIT in 0.45% NACL 1 250ML.BAG IV SCH (07:15)
--- NOTE | 2018-11-26 07:20 | PCN ---
PROCEDURE NOTE PROCEDURE NOTE: Insertion of triple-lumen catheter. PREOPERATIVE DIAGNOSIS: Shock. POSTOPERATIVE DIAGNOSIS: Shock. A time-out was completed verifying correct patient, procedure, site, positioning, and implant(s) or special equipment if applicable. The patient was placed in a dependent position appropriate for triple lumen catheter placement based on the vein to be cannulated. The patient's left neck was prepped and draped in sterile fashion. 1% Lidocaine was used to anesthetize the surrounding skin area. A triple lumen 9F Cordis catheter was introduced into the internal jugular vein using Seldinger technique. The catheter was threaded smoothly over the guide wire and appropriate blood return was obtained. Each lumen of the catheter was evacuated of air and flushed with sterile saline. The catheter was then sutured in place to the skin and a sterile dressing applied. Perfusion to the extremity distal to the point of catheter insertion was checked and found to be adequate. No bedside complications or bleeding. Chest x-ray showed no pneumothorax. MMODL / IJN: [id number] /
--- NOTE | 2018-11-26 07:24 | XR ---
EXAMINATION TYPE: XR chest 1V DATE OF EXAM: 11/26/2018 COMPARISON: 11/26/2018 HISTORY: Line placement TECHNIQUE: Single frontal view of the chest is obtained. FINDINGS: A new left-sided internal jugular central venous catheter has been placed with its distal tip terminating in the distal superior vena cava. No postprocedural pneumothorax. Enteric tube and en dotracheal tube are unchanged in position. Post CABG changes of the chest are noted. Bibasilar opacit ies, right greater than left are stable. Probable trace pleural effusions on the costophrenic angles. Minimal pulmonary vascular congestion remains. Cardia mediastinal silhouette is enlarged. IMPRESSION: Appropriately placed new left internal jugular central venous catheter terminating in th e distal superior vena cava with no postprocedural pneumothorax. Otherwise similar exam to the prior.
--- NOTE | 2018-11-26 07:32 | P.CNPUL ---
History of Present Illness Consult date: 11/26/18 Chief complaint: Shock, respiratory failure, severe acidosis History of present illness: This is a 78-year-old female patient with known history of coronary artery disease with previous bypass surgery in addition to extensive history of peripheral vascular disease, above-knee amputation on the left, previous history of stenting of the iliac vessels and a previous film fem-fem bypass surgery, came into the hospital because of chest pain. The patient was having on and off episodes of chest pain overnight prior to her coming to the hospital. Pain was around 7 out of [address] in severity. EKG showed ST segment elevation in leads [address] segment depression involving the lateral leads specifically V5 and V6. The initial troponin was 1.7. The patient was diagnosed having a STEMI. Subsequent troponin was at 3 and 28.4. The patient was taken emergently to the cardiac catheterization. The patient underwent successful stenting of a totally occluded ostium of the saphenous finger after PDA at the site of a prior stent with reduction in stenosis from 100% to 0%. Note that the patient has triple-vessel disease. The MARTI to LAD was patent. Saphenous finger after is marginal branch was patent with stenosis of the distal anastomotic site with small vessel. Overnight, the patient got transferred to the intensive care unit as the patient was having shortness of breath and abdominal pain. She was quite restless and uncomfortable. At the same time she got to urine output. The patient was found to acidotic. The lactic acid level came up to 10.7. LFTs are abnormal consistent with shock liver picture. The patient developed also an acute kidney injury. Potassium level came up to 6.6 and the patient developed an acute kidney injury with a creatinine of 2 and a BUN of 42. At that point, she was sent for a stat CAT scan of the abdomen that showed bilateral perinephric stranding. There was mild intra-abdominal free fluid and small to moderate-sized pleural effusions bilaterally. No other acute abnormalities were noted. The patient was brought back to the intensive care unit pH was 7 IV fluids. She was given a total of 3.0 L of normal saline. The blood gas showed a pH of 7.12 with a pCO2 of 30. I made decision to intubate the patient was on a mechanical ventilator. Post intubation, she became hypotensive. She was started on IV pressors. A triple lumen catheter in the left IJ was also inserted. At this point in time, the patient has intubated on a mechanical ventilator. I have her on a tidal volume of 500 and FiO2 of 60% with a PEEP of 5 and a rate of 26. Most recent blood gases showed a pH of 7.01 with a pCO2 of 25. To 92 and this was done and FiO2 of 100%. Chest x-ray is consistent or edema. ET tube is in a good location. Abdomen is soft post intubation. The patient is currently on 25-30 mics of norepinephrine infusion for blood pressure control. She is not producing any urine output. Repeated x-rays showed a sodium of 140 with a potassium of 5.4 that was treated with a combination of bicarb D50 insulin and albuterol, and the patient's BUN is at 43 with a creatinine of 2.5. The LFTs are obviously abnormal with an AST of 1119 and an ALT of 1079. The proBNP level was above 10,000. Serum amylase and lipase are not elevated. As the patient was being resuscitated, she had a brief episode where she lost her blood pressure and her blood pressure dropped down to the mid 40s. We were in the process of initiating CPR. An EKG and the cardiac rhythm at that time showed ST segment elevation and this was mainly in the inferior leads which makes me consider possibility of a recurrent acute ST segment elevation myocardial infarction. Subsequently, the patient converted into a sinus tachycardia rhythm with some nonspecific ST segment abnormalities. She remains on pressors for now at 25-30 mics of norepinephrine infusion pH is sedated. Pulses are diminished. She is cold and clammy and also extremities. She is unresponsive. IV heparin was also started. Repeat labs are all pending for the time being. Condition is critical. Review of Systems ROS unobtainable: due to endotracheal tube Past Medical History Past Medical History: Coronary Artery Disease (CAD), Chest Pain / Angina, CVA/ TIA, Diabetes Mellitus, GERD/Reflux, Hyperlipidemia, Hypertension, Myocardial Infarction (DC), Musculoskeletal Disorder, Skin Disorder, Vascular Disorder, Vascular Disorder Additional Past Medical History / Comment(s): neuropathy, uses wheelchair Last Myocardial Infarction Date:: 2010 History of Any Multi-Drug Resistant Organisms: C-DIFF, MRSA Date of last positivie culture/infection: 01/18/12 MDRO Source:: [facility] GREAT TOES Past Surgical History: Breast Surgery, Coronary Bypass/CABG, Heart Catheterization, Orthopedic Surgery, Tubal Ligation Additional Past Surgical History / Comment(s): amputation of one toe on each foot, stent rt leg, fem/fem bypass CABGx4, Left BKA, "1/2 OF RT FOOT AMPUTATED" 2013 RT BREAST NIPPLE BX BENIGN, [facility] CAROTIDENDARTECTOMY 2006. ANGIOGRAM Past Anesthesia/Blood Transfusion Reactions: Previous Problems w/ Anesthesia Additional Past Anesthesia/Blood Transfusion Reaction / Comment(s): diff time waking up Past Psychological History: No Psychological Hx Reported Smoking Status: Former smoker Past Alcohol Use History: None Reported Past Drug Use History: None Reported - Past Family History Sister(s) Family Medical History: Cancer Mother Family Medical History: Cancer Additional Family Medical History / Comment(s): Breast CA Medications and Allergies Home Medications Medication Instructions Recorded Confirmed Type Gabapentin [Neurontin] 600 mg PO TID 02/03/14 11/25/18 History Isosorbide Mononitrate [Imdur] 30 mg PO QAM 02/03/14 11/25/18 History Metoprolol Tartrate [Lopressor] 25 mg PO BID 02/03/14 11/25/18 History Pantoprazole Sodium [Protonix] 40 mg PO DAILY 02/03/14 11/25/18 History Ramipril [Altace] 2.5 mg PO QAM 02/03/14 11/25/18 History Atorvastatin [Lipitor] 80 mg PO HS #30 tab 02/20/14 11/25/18 Rx Insulin Glargine,Hum.rec.anlog 45 units SQ HS 04/02/14 11/25/18 History [Lantus Solostar] Folic Acid 1 mg PO DAILY 05/07/14 11/25/18 History Aspirin 325 mg PO DAILY #90 tab 02/02/16 11/25/18 Rx Clopidogrel [Plavix] 75 mg PO DAILY #90 tab 02/02/16 11/25/18 Rx Ferrous Sulfate [Feosol] 325 mg PO DAILY 11/01/17 11/25/18 History Allergies Allergy/AdvReac Type Severity Reaction Status Date / Time codeine AdvReac Unknown Wheezing Verified 11/25/18 16:24 and [place]LE[place] dulaglutide [From Trulicity] AdvReac Nausea & Verified 11/25/18 16:24 Vomiting & Diarrhea Physical Exam Vitals: Vital Signs Temp Pulse Pulse Resp BP Pulse Ox 11/26/18 03:00 84 18 105/51 91 L 11/26/18 02:00 97 28 H 133/78 87 L 11/26/18 01:00 87 18 122/55 92 L 11/26/18 00:00 97.9 F 85 22 111/59 11/25/18 23:00 89 26 H 115/43 11/25/18 22:00 85 15 109/54 11/25/18 21:29 91 11/25/18 21:26 92 11/25/18 21:00 78 15 107/53 81 L 11/25/18 20:00 97.8 F 79 12 115/50 92 L 11/25/18 19:00 77 10 L 115/50 97 11/25/18 18:00 73 18 115/50 91 L 11/25/18 17:00 76 16 92 L 11/25/18 16:00 98.6 F 75 20 115/50 90 L 11/25/18 15:00 76 97 11/25/18 14:00 76 17 97 11/25/18 13:00 72 28 H 115/52 93 L 11/25/18 12:00 97.0 F L 75 22 123/50 94 L 11/25/18 11:00 79 15 128/59 93 L 11/25/18 10:00 87 26 H 126/63 97 11/25/18 09:00 89 20 132/76 98 11/25/18 08:00 98.0 F 87 81 26 H 131/56 98 11/25/18 07:40 89 28 H 131/56 99 11/25/18 07:30 88 11 L 131/56 98 Intake and Output 11/25/18 11/26/18 11/26/18 22:59 06:59 14:59 Intake Total 940 700 Output Total 415 87 Balance 525 613 Intake: IV 700 700 Sodium Chloride 0.9% 1, 700 700 000 ml @ 100 mls/hr IV . [facility] Rx#:[id number] Oral 240 Output: Urine 175 87 Urine/Stool Mix 240 Other: Voiding Method Indwelling Catheter Indwelling Catheter Currently patient is sedated and unresponsive, comfortable centrosome mechanical ventilator. Orogastric and orotracheal tube are both in place. Head exam was generally normal. There was no scleral icterus or corneal arcus. Mucous membranes were moist. Neck was supple and without jugular venous distension, thyromegaly, or carotid bruits. Carotids were easily palpable bilaterally. There was no adenopathy. Scar of the previous left carotid endarterectomy seen over the left anterior neck area. Lungs sounds are equal and symmetrical bilaterally along with some crackles appreciated the lung bases. No wheezes. No rhonchi. Cardiac exam revealed the PMI to be normally situated and sized. The rhythm was regular and no extrasystoles were noted during several minutes of auscultation. The first and second heart sounds were normal and physiologic splitting of the second heart sound was noted. There were no murmurs, rubs, clicks, or gallops. There is a sternotomy site over the anterior chest area. Abdominal exam revealed normal bowel sounds. The abdomen was soft, non-tender, and without masses, organomegaly, or appreciable enlargement of the abdominal aorta. Extremities are cold and clammy and the patient has an above knee amputation left lower extremity. Pulse of the upper extremities and the right lower extremity is markedly diminished. There are palpable however. Neurologically, the patient is sedated. No focal neurological deficit present intubation process. The patient was fully alert and awake and responsive and following commands and answering questions. She was getting progressively more confused and agitated earlier this morning. Results - Laboratory Findings CBC and BMP: 11/26/18 02:30 11/26/18 02:30 ABG ABG pH 7.01 (7.35-7.45) L* 11/26/18 05:38 ABG pCO2 25 mmHg (35-45) L 11/26/18 05:38 ABG pO2 292 mmHg (83-108) H 11/26/18 05:38 ABG O2 Saturation 100.0 % (94-97) H 11/26/18 05:38 PT/INR, D-dimer PT 11.1 sec (9.0-12.0) 11/25/18 00:01 INR 1.0 (<1.2) 11/25/18 00:01 Abnormal lab findings: Abnormal Labs 11/24/18 11/25/18 11/25/18 09:12 00:01 00:01 WBC 12.3 H RBC 2.59 L Hgb 8.1 L Hct 26.3 L MCV 101.5 H MCHC RDW 15.6 H Neutrophils # 10.3 H Neutrophils # (Manual) Monocytes # (Manual) Myelocytes # (Manual) Nucleated RBCs APTT ABG pH ABG pCO2 ABG pO2 ABG HCO3 ABG Total CO2 ABG O2 Saturation Potassium 5.4 H Carbon Dioxide BUN 36 H Creatinine 1.58 H Glucose 268 H POC Glucose (mg/dL) Plasma Lactic Acid [place] Calcium AST 51 H ALT 77 H Alkaline Phosphatase 131 H Troponin I Total Protein Albumin Amylase Ur Specific [place] >1.050 H Urine Protein Trace H Urine Blood Moderate H Urine Bacteria Rare H Urine Mucus Rare H 11/25/18 11/25/18 11/25/18 00:01 02:44 06:12 WBC RBC Hgb Hct MCV MCHC RDW Neutrophils # Neutrophils # (Manual) Monocytes # (Manual) Myelocytes # (Manual) Nucleated RBCs APTT 42.2 H ABG pH ABG pCO2 ABG pO2 ABG HCO3 ABG Total CO2 ABG O2 Saturation Potassium Carbon Dioxide BUN Creatinine Glucose POC Glucose (mg/dL) 262 H Plasma Lactic Acid [place] Calcium AST ALT Alkaline Phosphatase Troponin I 1.730 H* Total Protein Albumin Amylase Ur Specific [place] Urine Protein Urine Blood Urine Bacteria Urine Mucus 11/25/18 11/25/18 11/25/18 06:12 06:43 11:33 WBC RBC Hgb Hct MCV MCHC RDW Neutrophils # Neutrophils # (Manual) Monocytes # (Manual) Myelocytes # (Manual) Nucleated RBCs APTT ABG pH ABG pCO2 ABG pO2 ABG HCO3 ABG Total CO2 ABG O2 Saturation Potassium Carbon Dioxide BUN Creatinine Glucose POC Glucose (mg/dL) 220 H Plasma Lactic Acid [place] Calcium AST ALT Alkaline Phosphatase Troponin I 3.170 H* 28.400 H* Total Protein Albumin Amylase Ur Specific [place] Urine Protein Urine Blood Urine Bacteria Urine Mucus 11/25/18 11/25/18 11/25/18 12:17 16:57 19:52 WBC RBC Hgb Hct MCV MCHC RDW Neutrophils # Neutrophils # (Manual) Monocytes # (Manual) Myelocytes # (Manual) Nucleated RBCs APTT ABG pH ABG pCO2 ABG pO2 ABG HCO3 ABG Total CO2 ABG O2 Saturation Potassium 6.6 H* Carbon Dioxide 16 L BUN 42 H Creatinine 2.07 H Glucose 176 H POC Glucose (mg/dL) 237 H 208 H Plasma Lactic Acid [place] Calcium 8.2 L AST ALT Alkaline Phosphatase Troponin I Total Protein Albumin Amylase Ur Specific [place] Urine Protein Urine Blood Urine Bacteria Urine Mucus 11/25/18 11/26/18 11/26/18 20:51 02:05 02:30 WBC 16.8 H RBC 2.53 L Hgb 7.7 L Hct 27.2 L MCV 107.3 H D MCHC 28.3 L RDW 16.1 H Neutrophils # Neutrophils # (Manual) 13.44 H Monocytes # (Manual) 1.85 H Myelocytes # (Manual) 0.17 H Nucleated RBCs 1 H APTT ABG pH ABG pCO2 ABG pO2 ABG HCO3 ABG Total CO2 ABG O2 Saturation Potassium Carbon Dioxide BUN Creatinine Glucose POC Glucose (mg/dL) 181 H 175 H Plasma Lactic Acid [place] Calcium AST ALT Alkaline Phosphatase Troponin I Total Protein Albumin Amylase Ur Specific [place] Urine Protein Urine Blood Urine Bacteria Urine Mucus 11/26/18 11/26/18 11/26/18 02:30 02:30 04:06 WBC RBC Hgb Hct MCV MCHC RDW Neutrophils # Neutrophils # (Manual) Monocytes # (Manual) Myelocytes # (Manual) Nucleated RBCs APTT ABG pH 7.18 L* ABG pCO2 30 L ABG pO2 ABG HCO3 11 L ABG Total CO2 12 L ABG O2 Saturation 97.3 H Potassium 5.4 H Carbon Dioxide 14 L BUN 43 H Creatinine 2.56 H Glucose 163 H POC Glucose (mg/dL) Plasma Lactic Acid [place] 10.7 H* Calcium 8.2 L AST 1119 H ALT 1079 H Alkaline Phosphatase Troponin I Total Protein 6.2 L Albumin 3.4 L Amylase <30 L Ur Specific [place] Urine Protein Urine Blood Urine Bacteria Urine Mucus 11/26/18 11/26/18 04:35 05:38 WBC RBC Hgb Hct MCV MCHC RDW Neutrophils # Neutrophils # (Manual) Monocytes # (Manual) Myelocytes # (Manual) Nucleated RBCs APTT ABG pH 7.01 L* ABG pCO2 25 L ABG pO2 292 H ABG HCO3 6 L* ABG Total CO2 7 L ABG O2 Saturation 100.0 H Potassium Carbon Dioxide BUN Creatinine Glucose POC Glucose (mg/dL) 137 H Plasma Lactic Acid [place] Calcium AST ALT Alkaline Phosphatase Troponin I Total Protein Albumin Amylase Ur Specific [place] Urine Protein Urine Blood Urine Bacteria Urine Mucus - Diagnostic Findings Chest x-ray: image reviewed Assessment and Plan Plan: Assessment [address] segment elevation myocardial infarction involving the inferior wall. The patient is status post emergent cardiac catheterization and stenting of the ostium of the saphenous finger graft to the PDA. Overnight the patient came into the intensive care unit the patient is currently in shock with seems to be of a cardiogenic shock. The patient is profoundly hypotensive. The patient has developed an acute kidney injury. The patient is in shock liver. She isn't hemodynamic collapse hypotensive and currently on high-dose pressors. She became severely acidotic and she has developed severe lactic acidosis. EKG showing ongoing abnormalities. There is some changes with ST segment elevation involving the inferior leads and I suspect acute stent occlusion. Case was discussed with cardiology. Awaiting a stat echocardiogram. Awaiting a stat cardiology evaluation. During this evaluation, the patient developed bradycardia, probably some third-degree AV block that was brief and I called for a CODE BLUE was very brief during which no CPR was done and the patient regained pulse and blood pressure without any interventions. 2 triple-vessel disease, please refer to the cardiac catheterization was done on 11/25/2018 3 acute shock with profound hypotension. This is likely cardiogenic shock. A septic component is felt to be less likely at this point in time. 4 severe lactic acidosis 5 acute kidney injury 6 acute shock liver 7 acute hypoxic respiratory failure. Currently intubated on mechanical ventilator. 8 acute hyperkalemia secondary to kidney injury and severe acidosis, treated 9 mild leukocytosis 10 chronic anemia 11 severe peripheral vascular disease with previous vascular intervention stenting of the iliacs and previous fem-fem bypass surgery and the patient has an above knee position left lower extremity 12 diabetes mellitus 13 obesity with a BMI of 32.9. 14 hyperlipidemia 15 current artery disease with previous endarterectomy on the left 16 abdominal pain with a negative CAT scan of the abdomen. Abdominal pain was probably related to bowel ischemia as the patient is known to have severe peripheral vascular disease. Possibility of an acute embolic phenomena to the bowel cannot be completely ruled out. The patient however had a negative CAT scan of the abdomen and the patient has soft abdomen for now. The patient was started on IV Zosyn as empiric antibiotic coverage. Plan This patient is critically ill. Suspect cardiogenic shock. Suspect an acute and recurrent cardiac event, probably related to a stent complication artery occlusion with recurrent inferior wall myocardial infarction. She will need a stat echocardiogram. She will need a stat cardiology evaluation and consideration for another cardiac catheterization. This of the left completely up to cardiology. Meanwhile, from the critical care standpoint, the patient is intubated on a mechanical ventilator. The necessary vent changes were begun. She was given 3 L of IV fluids patient was placed on a bicarb drip. She is currently off pressors. She is sedated with Diprivan. A triple lumen catheter was inserted. Currently catheter was inserted. She is an acute kidney injury. She is in shock liver. Check urine cultures. We'll check blood cultures. We 'll manage the hyperkalemia. We'll continue following up this patient here in the ICU. This is a critically care evaluation that was done and more than 45 minutes. This time was needed excluding time to do any procedures. During this evaluation, the patient was called for a CODE BLUE was very brief during which no CPR was done and the patient regained pulse and blood pressure without any interventions. Time with Patient: Greater than 30
[2018-11-26 07:39] LABS: Anisocytosis Slight; Basophils % (A) 0 %; Eosinophils % (A) 0 %; HCT 21.9 % (34.0-46.0); Hypochromasia Marked; Lymphocytes # (A) 2.1 k/uL (1.0-4.8); Lymphocytes % (A) 13 %; MCH 30.4 pg (25.0-35.0); MCHC 30.2 g/dL (31.0-37.0); Macrocytosis Slight; Mean Platelet Volume 9.4; Monocytes # (A) 0.9 k/uL (0-1.0); Monocytes % (A) 5 %; Neutrophils # (A) 13.3 k/uL (1.3-7.7); Neutrophils % (A) 81 %; Platelet Count 180 k/uL (150-450); RBC 2.18 m/uL (3.80-5.40); RDW 16.2 % (11.5-15.5); WBC 16.4 k/uL (3.8-10.6)
[2018-11-26 07:40] LABS: ABG Base Excess -20.1 mmol/L; ABG Oxygen Saturation 98.7 % (94-97); ABG PCO2 23 mmHg (35-45); ABG PO2 128 mmHg (83-108); ABG TCO2 9 mmol/L (19-24)
[2018-11-26 07:42] LABS: Calcium 11.1 mg/dL (8.4-10.2)
[2018-11-26 07:43] LABS: ABG HCO3 8 mmol/L (21-25); ABG PH 7.17 (7.35-7.45)
[2018-11-26 07:44] LABS: HGB 6.6 gm/dL (11.4-16.0); INR 1.7 (<1.2); Prothrombin Time 17.3 sec (9.0-12.0)
[2018-11-26 07:45] LABS: MCV 100.6 fL (80.0-100.0)
[2018-11-26 07:50] LABS: Potassium 6.7 mmol/L (3.5-5.1)
[2018-11-26] MEDS ORDERED: SODIUM BICARB 8.4% 50 ML SYR (1 MEQ/ML) IV STA (08:16)
[2018-11-26] MEDS ORDERED: INSULIN REGULAR 100 UNIT/ML VIAL IV STA (08:16)
[2018-11-26] MEDS ORDERED: DEXTROSE 50%-WATER 50 ML SYRINGE IVP STA (08:16)
[2018-11-26 08:54] VITALS: TEMP 98.5
[2018-11-26] MEDS: INSULIN ASPART (NovoLOG) 100 UNIT/ML VIAL SQ SCH ×2 (09:03→12:04)
--- NOTE | 2018-11-26 10:39 | P.PN ---
Subjective Progress Note Date: 11/26/18 Principal diagnosis: Acute ST elevation myocardial infarction and acute cardiogenic shock. This is a 78-year-old female patient with known history of coronary artery disease with previous bypass surgery in addition to extensive history of peripheral vascular disease, above-knee amputation on the left, previous history of stenting of the iliac vessels and a previous film fem-fem bypass surgery, came into the hospital because of chest pain. The patient was having on and off episodes of chest pain overnight prior to her coming to the hospital. Pain was around 7 out of [address] in [address] EKG showed ST segment elevation in leads [address] segment depression involving the lateral leads specifically V5 and V6. The initial troponin was 1.7. The patient was diagnosed having a STEMI. Subsequent troponin was at 3 and 28.4. The patient was taken emergently to the cardiac catheterization. The patient underwent successful stenting of a totally occluded ostium of the saphenous finger after PDA at the site of a prior stent with reduction in stenosis from 100% to 0%. Note that the patient has triple-vessel disease. The MARTI to LAD was patent. Saphenous finger after is marginal branch was patent with stenosis of the distal anastomotic site with small vessel. Overnight, the patient got transferred to the intensive care unit as the patient was having shortness of breath and abdominal pain. She was quite restless and uncomfortable. At the same time she got to urine output. The patient was found to acidotic. The lactic acid level came up to 10.7. LFTs are abnormal consistent with shock liver picture. The patient developed also an acute kidney injury. Potassium level came up to 6.6 and the patient developed an acute kidney injury with a creatinine of 2 and a BUN of 42. At that point, she was sent for a stat CAT scan of the abdomen that showed bilateral perinephric stranding. There was mild intra-abdominal free fluid and small to moderate-sized pleural effusions bilaterally. No other acute abnormalities were noted. The patient was brought back to the intensive care unit pH was 7 IV fluids. She was given a total of 3.0 L of normal saline. The blood gas showed a pH of 7.12 with a pCO2 of 30. I made decision to intubate the patient was on a mechanical ventilator. Post intubation, she became hypotensive. She was started on IV pressors. A triple lumen catheter in the left IJ was also inserted. At this point in time, the patient has intubated on a mechanical ventilator. I have her on a tidal volume of 500 and FiO2 of 60% with a PEEP of 5 and a rate of 26. Most recent blood gases showed a pH of 7.01 with a pCO2 of 25. To 92 and this was done and FiO2 of 100%. Chest x-ray is consistent or edema. ET tube is in a good location. Abdomen is soft post intubation. The patient is currently on 25-30 mics of norepinephrine infusion for blood pressure control. She is not producing any urine output. Repeated x-rays showed a sodium of 140 with a potassium of 5.4 that was treated with a combination of bicarb D50 insulin and albuterol, and the patient's BUN is at 43 with a creatinine of 2.5. The LFTs are obviously abnormal with an AST of 1119 and an ALT of 1079. The proBNP level was above 10,000. Serum amylase and lipase are not elevated. As the patient was being resuscitated, she had a brief episode where she lost her blood pressure and her blood pressure dropped down to the mid 40s. We were in the process of initiating CPR. An EKG and the cardiac rhythm at that time showed ST segment elevation and this was mainly in the inferior leads which makes me consider possibility of a recurrent acute ST segment elevation myocardial infarction. Subsequently, the patient converted into a sinus tachycardia rhythm with some nonspecific ST segment abnormalities. She remains on pressors for now at 25-30 mics of norepinephrine infusion pH is sedated. Pulses are diminished. She is cold and clammy and also extremities. She is unresponsive. IV heparin was also started. Repeat labs are all pending for the time being. Condition is critical. Patient was seen shortly after she was seen by Dr. Jackson today, and his note was reviewed above. Patient remains on mechanical ventilation, ventilator settings are basically the same, she is on assist control rate of 30, tidal volume of 500, PEEP of 5, and FiO2 of 60% and I cut it down to 50%. Labs were reviewed, continues to have hyperkalemia with a potassium of 6.6, her BUN is elevated at 43 and creatinine 2.51. Repeat potassium after multiple treatments for hyperkalemia came back at 6.7. Hence the patient was continued on bicarb, she was given more insulin and glucose. Hemoglobin was 6.6, and transfusion of 1 acute of packed RBCs was ordered by Dr. Jackson. INR is 1.7. ABG showed a pO2 of 128 pCO2 of 23 pH of 7.17. Earlier ABG was 7.01. 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 CT of the abdomen and pelvis questioned mild intra-abdominal free fluid possible hemorrhagic component. There was also nodular periphery of the liver with persistent periportal edema and lymphadenopathy. And her lactic acid came back significantly elevated. Family walked in, and I discussed her condition with her daughter, son, and son-in-law , explained to them that the patient is in profound cardiogenic shock, and her prognosis is extremely poor. Family agreed to DO NOT RESUSCITATE CODE STATUS, and may consider comfort care measures in the next couple of hours. In the meantime the patient will remain on sodium bicarb drip, norepinephrine drip, fluid boluses, propofol, and updrafts. Chest x-ray showed bibasilar opacities right more so than left, and bilateral pleural effusions with pulmonary vascular congestion. Objective - Vital Signs Vital signs: Vital Signs Temp 98.5 F 11/26/18 04:00 Pulse 73 11/26/18 07:00 Resp 26 H 11/26/18 07:00 BP 94/43 11/26/18 07:00 Pulse Ox 91 L 11/26/18 03:00 Intake & Output 11/25/18 11/26/18 11/26/18 18:59 06:59 18:59 Intake Total 1580 1000 Output Total 455 407 0 Balance 1125 593 0 Weight 81.647 kg Intake: IV 1100 1000 Sodium Chloride 0.9% 1, 1100 1000 000 ml @ 100 mls/hr IV . Q10H [facility] Rx#:[id number] Oral 480 Output: Urine 305 167 0 Urine/Stool Mix 240 Emesis 150 Other: Voiding Method Indwelling Catheter Indwelling Catheter ABP, PAP, CO, CI - Last Documented Arterial Blood Pressure 80/45 - Exam Physical Exam: Revealed a 78-year-old female, obese, on mechanical ventilation, sedated, in no distress. Head: Atraumatic, normocephalic, left IJ central line was noted. HEENT:[Neck is supple.] [No neck masses.] [No thyromegaly.] [No JVD.] Endotracheal tube and orogastric tube were noted to be intact. Chest: [Diminished breath sound bilaterally crackles and rhonchi noted bilaterally..] Cardiac Exam: [Distant S1 and S2, no S3 gallop. 2/6 systolic murmur thought the precordium..] Abdomen: [Soft, nontender, no megaly, no rebound, no guarding, normal bowel sounds.] Extremities: [Noted to be cold and clammy, patient has left below knee amputation..] Extremely diminished pulses bilaterally. Neurological Exam: Sedated, could not be addressed. Psychiatric: Could not be addressed. Lymphatics: No lymphadenopathy. Skin: No rashes. - Labs CBC & Chem 7: 11/26/18 07:15 11/26/18 07:15 Labs: Abnormal Lab Results - Last 24 Hours (Table) 11/25/18 11/25/18 11/25/18 Range/Units 11:33 12:17 16:57 WBC (3.8-10.6) k/uL RBC (3.80-5.40) m/uL Hgb (11.4-16.0) gm/dL Hct (34.0-46.0) % MCV (80.0-100.0) fL MCHC (31.0-37.0) g/dL RDW (11.5-15.5) % Neutrophils # (1.3-7.7) k/uL Neutrophils # (Manual) (1.3-7.7) k/uL Monocytes # (Manual) (0-1.0) k/uL Myelocytes # (Manual) (0) k/uL Nucleated RBCs (0-0) /100 WBC PT (9.0-12.0) sec INR (<1.2) APTT (22.0-30.0) sec ABG pH (7.35-7.45) ABG pCO2 (35-45) mmHg ABG pO2 (83-108) mmHg ABG HCO3 (21-25) mmol/L ABG Total CO2 (19-24) mmol/L ABG O2 Saturation (94-97) % ABG Lactic Acid (0.5-1.6) mmol/L Sodium (137-145) mmol/L Potassium (3.5-5.1) mmol/L Chloride (98-107) mmol/L Carbon Dioxide (22-30) mmol/L BUN (7-17) mg/dL Creatinine (0.52-1.04) mg/dL Glucose (74-99) mg/dL POC Glucose (mg/dL) 237 H 208 H (75-99) mg/dL Plasma Lactic Acid Amado (0.7-2.0) mmol/L Calcium (8.4-10.2) mg/dL AST (14-36) U/L ALT (9-52) U/L Troponin I 28.400 H* (0.000-0.034) ng/mL Total Protein (6.3-8.2) g/dL Albumin (3.5-5.0) g/dL Amylase (30-110) U/L 11/25/18 11/25/18 11/26/18 Range/Units 19:52 20:51 02:05 WBC (3.8-10.6) k/uL RBC (3.80-5.40) m/uL Hgb (11.4-16.0) gm/dL Hct (34.0-46.0) % MCV (80.0-100.0) fL MCHC (31.0-37.0) g/dL RDW (11.5-15.5) % Neutrophils # (1.3-7.7) k/uL Neutrophils # (Manual) (1.3-7.7) k/uL Monocytes # (Manual) (0-1.0) k/uL Myelocytes # (Manual) (0) k/uL Nucleated RBCs (0-0) /100 WBC PT (9.0-12.0) sec INR (<1.2) APTT (22.0-30.0) sec ABG pH (7.35-7.45) ABG pCO2 (35-45) mmHg ABG pO2 (83-108) mmHg ABG HCO3 (21-25) mmol/L ABG Total CO2 (19-24) mmol/L ABG O2 Saturation (94-97) % ABG Lactic Acid (0.5-1.6) mmol/L Sodium (137-145) mmol/L Potassium 6.6 H* (3.5-5.1) mmol/L Chloride (98-107) mmol/L Carbon Dioxide 16 L (22-30) mmol/L BUN 42 H (7-17) mg/dL Creatinine 2.07 H (0.52-1.04) mg/dL Glucose 176 H (74-99) mg/dL POC Glucose (mg/dL) 181 H 175 H (75-99) mg/dL Plasma Lactic Acid Amado (0.7-2.0) mmol/L Calcium 8.2 L (8.4-10.2) mg/dL AST (14-36) U/L ALT (9-52) U/L Troponin I (0.000-0.034) ng/mL Total Protein (6.3-8.2) g/dL Albumin (3.5-5.0) g/dL Amylase (30-110) U/L 11/26/18 11/26/18 11/26/18 Range/Units 02:30 02:30 02:30 WBC 16.8 H (3.8-10.6) k/uL RBC 2.53 L (3.80-5.40) m/uL Hgb 7.7 L (11.4-16.0) gm/dL Hct 27.2 L (34.0-46.0) % MCV 107.3 H D (80.0-100.0) fL MCHC 28.3 L (31.0-37.0) g/dL RDW 16.1 H (11.5-15.5) % Neutrophils # (1.3-7.7) k/uL Neutrophils # (Manual) 13.44 H (1.3-7.7) k/uL Monocytes # (Manual) 1.85 H (0-1.0) k/uL Myelocytes # (Manual) 0.17 H (0) k/uL Nucleated RBCs 1 H (0-0) /100 WBC PT (9.0-12.0) sec INR (<1.2) APTT (22.0-30.0) sec ABG pH (7.35-7.45) ABG pCO2 (35-45) mmHg ABG pO2 (83-108) mmHg ABG HCO3 (21-25) mmol/L ABG Total CO2 (19-24) mmol/L ABG O2 Saturation (94-97) % ABG Lactic Acid (0.5-1.6) mmol/L Sodium (137-145) mmol/L Potassium 5.4 H (3.5-5.1) mmol/L Chloride (98-107) mmol/L Carbon Dioxide 14 L (22-30) mmol/L BUN 43 H (7-17) mg/dL Creatinine 2.56 H (0.52-1.04) mg/dL Glucose 163 H (74-99) mg/dL POC Glucose (mg/dL) (75-99) mg/dL Plasma Lactic Acid Amado 10.7 H* (0.7-2.0) mmol/L Calcium 8.2 L (8.4-10.2) mg/dL AST 1119 H (14-36) U/L ALT 1079 H (9-52) U/L Troponin I (0.000-0.034) ng/mL Total Protein 6.2 L (6.3-8.2) g/dL Albumin 3.4 L (3.5-5.0) g/dL Amylase <30 L (30-110) U/L 11/26/18 11/26/18 11/26/18 Range/Units 04:06 04:35 05:38 WBC (3.8-10.6) k/uL RBC (3.80-5.40) m/uL Hgb (11.4-16.0) gm/dL Hct (34.0-46.0) % MCV (80.0-100.0) fL MCHC (31.0-37.0) g/dL RDW (11.5-15.5) % Neutrophils # (1.3-7.7) k/uL Neutrophils # (Manual) (1.3-7.7) k/uL Monocytes # (Manual) (0-1.0) k/uL Myelocytes # (Manual) (0) k/uL Nucleated RBCs (0-0) /100 WBC PT (9.0-12.0) sec INR (<1.2) APTT (22.0-30.0) sec ABG pH 7.18 L* 7.01 L* (7.35-7.45) ABG pCO2 30 L 25 L (35-45) mmHg ABG pO2 292 H (83-108) mmHg ABG HCO3 11 L 6 L* (21-25) mmol/L ABG Total CO2 12 L 7 L (19-24) mmol/L ABG O2 Saturation 97.3 H 100.0 H (94-97) % ABG Lactic Acid (0.5-1.6) mmol/L Sodium (137-145) mmol/L Potassium (3.5-5.1) mmol/L Chloride (98-107) mmol/L Carbon Dioxide (22-30) mmol/L BUN (7-17) mg/dL Creatinine (0.52-1.04) mg/dL Glucose (74-99) mg/dL POC Glucose (mg/dL) 137 H (75-99) mg/dL Plasma Lactic Acid Amado (0.7-2.0) mmol/L Calcium (8.4-10.2) mg/dL AST (14-36) U/L ALT (9-52) U/L Troponin I (0.000-0.034) ng/mL Total Protein (6.3-8.2) g/dL Albumin (3.5-5.0) g/dL Amylase (30-110) U/L 11/26/18 11/26/18 11/26/18 Range/Units 06:50 07:15 07:15 WBC 16.4 H (3.8-10.6) k/uL RBC 2.18 L (3.80-5.40) m/uL Hgb 6.6 L* (11.4-16.0) gm/dL Hct 21.9 L (34.0-46.0) % MCV 100.6 H D (80.0-100.0) fL MCHC 30.2 L (31.0-37.0) g/dL RDW 16.2 H (11.5-15.5) % Neutrophils # 13.3 H (1.3-7.7) k/uL Neutrophils # (Manual) (1.3-7.7) k/uL Monocytes # (Manual) (0-1.0) k/uL Myelocytes # (Manual) (0) k/uL Nucleated RBCs (0-0) /100 WBC PT (9.0-12.0) sec INR (<1.2) APTT (22.0-30.0) sec ABG pH (7.35-7.45) ABG pCO2 (35-45) mmHg ABG pO2 (83-108) mmHg ABG HCO3 (21-25) mmol/L ABG Total CO2 (19-24) mmol/L ABG O2 Saturation (94-97) % ABG Lactic Acid 14.6 H* (0.5-1.6) mmol/L Sodium 146 H (137-145) mmol/L Potassium 6.7 H* (3.5-5.1) mmol/L Chloride 112 H (98-107) mmol/L Carbon Dioxide 19 L (22-30) mmol/L BUN 43 H (7-17) mg/dL Creatinine 2.51 H (0.52-1.04) mg/dL Glucose (74-99) mg/dL POC Glucose (mg/dL) (75-99) mg/dL Plasma Lactic Acid Amado (0.7-2.0) mmol/L Calcium 11.1 H (8.4-10.2) mg/dL AST (14-36) U/L ALT (9-52) U/L Troponin I (0.000-0.034) ng/mL Total Protein (6.3-8.2) g/dL Albumin (3.5-5.0) g/dL Amylase (30-110) U/L 11/26/18 11/26/18 Range/Units 07:15 07:19 WBC (3.8-10.6) k/uL RBC (3.80-5.40) m/uL Hgb (11.4-16.0) gm/dL Hct (34.0-46.0) % MCV (80.0-100.0) fL MCHC (31.0-37.0) g/dL RDW (11.5-15.5) % Neutrophils # (1.3-7.7) k/uL Neutrophils # (Manual) (1.3-7.7) k/uL Monocytes # (Manual) (0-1.0) k/uL Myelocytes # (Manual) (0) k/uL Nucleated RBCs (0-0) /100 WBC PT 17.3 H (9.0-12.0) sec INR 1.7 H (<1.2) APTT 19.0 L (22.0-30.0) sec ABG pH 7.17 L* (7.35-7.45) ABG pCO2 23 L (35-45) mmHg ABG pO2 128 H (83-108) mmHg ABG HCO3 8 L* (21-25) mmol/L ABG Total CO2 9 L (19-24) mmol/L ABG O2 Saturation 98.7 H (94-97) % ABG Lactic Acid (0.5-1.6) mmol/L Sodium (137-145) mmol/L Potassium (3.5-5.1) mmol/L Chloride (98-107) mmol/L Carbon Dioxide (22-30) mmol/L BUN (7-17) mg/dL Creatinine (0.52-1.04) mg/dL Glucose (74-99) mg/dL POC Glucose (mg/dL) (75-99) mg/dL Plasma Lactic Acid Amado (0.7-2.0) mmol/L Calcium (8.4-10.2) mg/dL AST (14-36) U/L ALT (9-52) U/L Troponin I (0.000-0.034) ng/mL Total Protein (6.3-8.2) g/dL Albumin (3.5-5.0) g/dL Amylase (30-110) U/L Assessment and Plan Assessment: Impression: 1 acute hypoxic respiratory failure secondary to acute cardiogenic shock. [address] elevation myocardial infarction involving the inferior wall. 3 severe lactic acidosis, suspect hypoperfusion of the GI tract, and GI ischemia related to poor perfusion. 4 acute kidney injury secondary to acute tubular necrosis 5 history of triple-vessel coronary artery disease documented on a previous cardiac catheterization. 6 severe metabolic acidosis, lactic acidosis, and profound hyperkalemia. All secondary to cardiogenic shock and poor perfusion. 7 acute on chronic anemia, exact etiology is not clear. 8 severe peripheral vessel occlusive disease and previous left lower extremity amputation. 9 type 2 diabetes 10 previous carotid artery disease and left endarterectomy. 11 abdominal pain most likely secondary to ischemic bowel, strongly doubt abdominal sepsis, patient is definitely a poor candidate for any surgical intervention considering the profound hypotension and cardiogenic shock. 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 Patient is not a candidate for any surgical intervention, family agreed to DO NOT RESUSCITATE CODE STATUS, and may soon consider comfort care measures. We'll continue to follow. Critical care time is 35 minutes. Time with Patient: Greater than 30
--- NOTE | 2018-11-26 10:44 | P.PN ---
Subjective Progress Note Date: 11/26/18 Patient had a very complicated done for worse last night. She started complaining of abdominal pain and her urine output decreased. Stat BNP ordered showed that she had acute on chronic renal failure and her potassium was up. She was given IV fluids, insulin and dextrose and sodium bicarb. Computed tomography scan abdomen was done which did not show any acute abnormalities. Her potassium improved to 5.4. Then in the morning she started complaining of severe chest pain radiating to her back a stat EKG was done which showed ST elevations. She was given nitro. Cardiac was called who suggested that she needs to be tubed as her pH was dropping and she was becoming severely acidotic. The repeat lab work also showed that her potassium was back up the kidney functions are worsening, her liver functions were up and her lactic acid was very high. Cardiology saw the patient this morning and suggested that the patient has occluded stent. Peritoneal Dialysis Registered Nurse is that she is having severe cardiac shock secondary to severe myocardial infarction due to stent occlusion causing MULTIORGAN DYSFUNCTION. Right now patient is intubated and on pressors and IV fluids Objective - Vital Signs Vital signs: Vital Signs Temp 98.5 F 11/26/18 04:00 Pulse 73 11/26/18 07:00 Resp 26 H 11/26/18 07:00 BP 94/43 11/26/18 07:00 Pulse Ox 91 L 11/26/18 03:00 Intake & Output 11/25/18 11/26/18 11/26/18 18:59 06:59 18:59 Intake Total 1580 1000 Output Total 455 407 0 Balance 1125 593 0 Weight 81.647 kg Intake: IV 1100 1000 Sodium Chloride 0.9% 1, 1100 1000 000 ml @ 100 mls/hr IV . Q10H [facility] Rx#:[id number] Oral 480 Output: Urine 305 167 0 Urine/Stool Mix 240 Emesis 150 Other: Voiding Method Indwelling Catheter Indwelling Catheter ABP, PAP, CO, CI - Last Documented Arterial Blood Pressure 80/45 - Exam On exam, 0 status post intubation and sedation and pressors HEENT: Conjunctivae normal. eyes normal. NECK: No JVD. No thyroid enlargement. No LNs CARDIOVASCULAR: S1, S2 heard RESPIRATION: Breath sounds diminished in the bases. No rhonchi or crackles. No bronchial breathing. ABDOMEN: Soft, nontender . No guarding. no masses palpable. No ascites, No hepatosplenomegaly.Bowel sounds heard. 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 No edema NERVOUS SYSTEM: Unable to perform as the patient is intubated and sedated Skin: no ulcer no rash - Labs CBC & Chem 7: 11/26/18 07:15 11/26/18 07:15 Labs: Abnormal Lab Results - Last 24 Hours (Table) 11/25/18 11/25/18 11/25/18 Range/Units 11:33 12:17 16:57 WBC (3.8-10.6) k/uL RBC (3.80-5.40) m/uL Hgb (11.4-16.0) gm/dL Hct (34.0-46.0) % MCV (80.0-100.0) fL MCHC (31.0-37.0) g/dL RDW (11.5-15.5) % Neutrophils # (1.3-7.7) k/uL Neutrophils # (Manual) (1.3-7.7) k/uL Monocytes # (Manual) (0-1.0) k/uL Myelocytes # (Manual) (0) k/uL Nucleated RBCs (0-0) /100 WBC PT (9.0-12.0) sec INR (<1.2) APTT (22.0-30.0) sec ABG pH (7.35-7.45) ABG pCO2 (35-45) mmHg ABG pO2 (83-108) mmHg ABG HCO3 (21-25) mmol/L ABG Total CO2 (19-24) mmol/L ABG O2 Saturation (94-97) % ABG Lactic Acid (0.5-1.6) mmol/L Sodium (137-145) mmol/L Potassium (3.5-5.1) mmol/L Chloride (98-107) mmol/L Carbon Dioxide (22-30) mmol/L BUN (7-17) mg/dL Creatinine (0.52-1.04) mg/dL Glucose (74-99) mg/dL POC Glucose (mg/dL) 237 H 208 H (75-99) mg/dL Plasma Lactic Acid Amado (0.7-2.0) mmol/L Calcium (8.4-10.2) mg/dL AST (14-36) U/L ALT (9-52) U/L Troponin I 28.400 H* (0.000-0.034) ng/mL Total Protein (6.3-8.2) g/dL Albumin (3.5-5.0) g/dL Amylase (30-110) U/L 11/25/18 11/25/18 11/26/18 Range/Units 19:52 20:51 02:05 WBC (3.8-10.6) k/uL RBC (3.80-5.40) m/uL Hgb (11.4-16.0) gm/dL Hct (34.0-46.0) % MCV (80.0-100.0) fL MCHC (31.0-37.0) g/dL RDW (11.5-15.5) % Neutrophils # (1.3-7.7) k/uL Neutrophils # (Manual) (1.3-7.7) k/uL Monocytes # (Manual) (0-1.0) k/uL Myelocytes # (Manual) (0) k/uL Nucleated RBCs (0-0) /100 WBC PT (9.0-12.0) sec INR (<1.2) APTT (22.0-30.0) sec ABG pH (7.35-7.45) ABG pCO2 (35-45) mmHg ABG pO2 (83-108) mmHg ABG HCO3 (21-25) mmol/L ABG Total CO2 (19-24) mmol/L ABG O2 Saturation (94-97) % ABG Lactic Acid (0.5-1.6) mmol/L Sodium (137-145) mmol/L Potassium 6.6 H* (3.5-5.1) mmol/L Chloride (98-107) mmol/L Carbon Dioxide 16 L (22-30) mmol/L BUN 42 H (7-17) mg/dL Creatinine 2.07 H (0.52-1.04) mg/dL Glucose 176 H (74-99) mg/dL POC Glucose (mg/dL) 181 H 175 H (75-99) mg/dL Plasma Lactic Acid Amado (0.7-2.0) mmol/L Calcium 8.2 L (8.4-10.2) mg/dL AST (14-36) U/L ALT (9-52) U/L Troponin I (0.000-0.034) ng/mL Total Protein (6.3-8.2) g/dL Albumin (3.5-5.0) g/dL Amylase (30-110) U/L 11/26/18 11/26/18 11/26/18 Range/Units 02:30 02:30 02:30 WBC 16.8 H (3.8-10.6) k/uL RBC 2.53 L (3.80-5.40) m/uL Hgb 7.7 L (11.4-16.0) gm/dL Hct 27.2 L (34.0-46.0) % MCV 107.3 H D (80.0-100.0) fL MCHC 28.3 L (31.0-37.0) g/dL RDW 16.1 H (11.5-15.5) % Neutrophils # (1.3-7.7) k/uL Neutrophils # (Manual) 13.44 H (1.3-7.7) k/uL Monocytes # (Manual) 1.85 H (0-1.0) k/uL Myelocytes # (Manual) 0.17 H (0) k/uL Nucleated RBCs 1 H (0-0) /100 WBC PT (9.0-12.0) sec INR (<1.2) APTT (22.0-30.0) sec ABG pH (7.35-7.45) ABG pCO2 (35-45) mmHg ABG pO2 (83-108) mmHg ABG HCO3 (21-25) mmol/L ABG Total CO2 (19-24) mmol/L ABG O2 Saturation (94-97) % ABG Lactic Acid (0.5-1.6) mmol/L Sodium (137-145) mmol/L Potassium 5.4 H (3.5-5.1) mmol/L Chloride (98-107) mmol/L Carbon Dioxide 14 L (22-30) mmol/L BUN 43 H (7-17) mg/dL Creatinine 2.56 H (0.52-1.04) mg/dL Glucose 163 H (74-99) mg/dL POC Glucose (mg/dL) (75-99) mg/dL Plasma Lactic Acid Amado 10.7 H* (0.7-2.0) mmol/L Calcium 8.2 L (8.4-10.2) mg/dL AST 1119 H (14-36) U/L ALT 1079 H (9-52) U/L Troponin I (0.000-0.034) ng/mL Total Protein 6.2 L (6.3-8.2) g/dL Albumin 3.4 L (3.5-5.0) g/dL Amylase <30 L (30-110) U/L 11/26/18 11/26/18 11/26/18 Range/Units 04:06 04:35 05:38 WBC (3.8-10.6) k/uL RBC (3.80-5.40) m/uL Hgb (11.4-16.0) gm/dL Hct (34.0-46.0) % MCV (80.0-100.0) fL MCHC (31.0-37.0) g/dL RDW (11.5-15.5) % Neutrophils # (1.3-7.7) k/uL Neutrophils # (Manual) (1.3-7.7) k/uL Monocytes # (Manual) (0-1.0) k/uL Myelocytes # (Manual) (0) k/uL Nucleated RBCs (0-0) /100 WBC PT (9.0-12.0) sec INR (<1.2) APTT (22.0-30.0) sec ABG pH 7.18 L* 7.01 L* (7.35-7.45) ABG pCO2 30 L 25 L (35-45) mmHg ABG pO2 292 H (83-108) mmHg ABG HCO3 11 L 6 L* (21-25) mmol/L ABG Total CO2 12 L 7 L (19-24) mmol/L ABG O2 Saturation 97.3 H 100.0 H (94-97) % ABG Lactic Acid (0.5-1.6) mmol/L Sodium (137-145) mmol/L Potassium (3.5-5.1) mmol/L Chloride (98-107) mmol/L Carbon Dioxide (22-30) mmol/L BUN (7-17) mg/dL Creatinine (0.52-1.04) mg/dL Glucose (74-99) mg/dL POC Glucose (mg/dL) 137 H (75-99) mg/dL Plasma Lactic Acid Amado (0.7-2.0) mmol/L Calcium (8.4-10.2) mg/dL AST (14-36) U/L ALT (9-52) U/L Troponin I (0.000-0.034) ng/mL Total Protein (6.3-8.2) g/dL Albumin (3.5-5.0) g/dL Amylase (30-110) U/L 11/26/18 11/26/18 11/26/18 Range/Units 06:50 07:15 07:15 WBC 16.4 H (3.8-10.6) k/uL RBC 2.18 L (3.80-5.40) m/uL Hgb 6.6 L* (11.4-16.0) gm/dL Hct 21.9 L (34.0-46.0) % MCV 100.6 H D (80.0-100.0) fL MCHC 30.2 L (31.0-37.0) g/dL RDW 16.2 H (11.5-15.5) % Neutrophils # 13.3 H (1.3-7.7) k/uL Neutrophils # (Manual) (1.3-7.7) k/uL Monocytes # (Manual) (0-1.0) k/uL Myelocytes # (Manual) (0) k/uL Nucleated RBCs (0-0) /100 WBC PT (9.0-12.0) sec INR (<1.2) APTT (22.0-30.0) sec ABG pH (7.35-7.45) ABG pCO2 (35-45) mmHg ABG pO2 (83-108) mmHg ABG HCO3 (21-25) mmol/L ABG Total CO2 (19-24) mmol/L ABG O2 Saturation (94-97) % ABG Lactic Acid 14.6 H* (0.5-1.6) mmol/L Sodium 146 H (137-145) mmol/L Potassium 6.7 H* (3.5-5.1) mmol/L Chloride 112 H (98-107) mmol/L Carbon Dioxide 19 L (22-30) mmol/L BUN 43 H (7-17) mg/dL Creatinine 2.51 H (0.52-1.04) mg/dL Glucose (74-99) mg/dL POC Glucose (mg/dL) (75-99) mg/dL Plasma Lactic Acid Amado (0.7-2.0) mmol/L Calcium 11.1 H (8.4-10.2) mg/dL AST (14-36) U/L ALT (9-52) U/L Troponin I (0.000-0.034) ng/mL Total Protein (6.3-8.2) g/dL Albumin (3.5-5.0) g/dL Amylase (30-110) U/L 11/26/18 11/26/18 Range/Units 07:15 07:19 WBC (3.8-10.6) k/uL RBC (3.80-5.40) m/uL Hgb (11.4-16.0) gm/dL Hct (34.0-46.0) % MCV (80.0-100.0) fL MCHC (31.0-37.0) g/dL RDW (11.5-15.5) % Neutrophils # (1.3-7.7) k/uL Neutrophils # (Manual) (1.3-7.7) k/uL Monocytes # (Manual) (0-1.0) k/uL Myelocytes # (Manual) (0) k/uL Nucleated RBCs (0-0) /100 WBC PT 17.3 H (9.0-12.0) sec INR 1.7 H (<1.2) APTT 19.0 L (22.0-30.0) sec ABG pH 7.17 L* (7.35-7.45) ABG pCO2 23 L (35-45) mmHg ABG pO2 128 H (83-108) mmHg ABG HCO3 8 L* (21-25) mmol/L ABG Total CO2 9 L (19-24) mmol/L ABG O2 Saturation 98.7 H (94-97) % ABG Lactic Acid (0.5-1.6) mmol/L Sodium (137-145) mmol/L Potassium (3.5-5.1) mmol/L Chloride (98-107) mmol/L Carbon Dioxide (22-30) mmol/L BUN (7-17) mg/dL Creatinine (0.52-1.04) mg/dL Glucose (74-99) mg/dL POC Glucose (mg/dL) (75-99) mg/dL Plasma Lactic Acid Amado (0.7-2.0) mmol/L Calcium (8.4-10.2) mg/dL AST (14-36) U/L ALT (9-52) U/L Troponin I (0.000-0.034) ng/mL Total Protein (6.3-8.2) g/dL Albumin (3.5-5.0) g/dL Amylase (30-110) U/L Assessment and Plan Assessment: - STEMI status post PCI and stenting - Severe conversion and shock leading to end organ damage including shock liver and shock kidneys - CAD status post CABG previously - History of PVD - Hypertension - Hyperlipidemia - Diabetes - History of CVA - History of GERD Plan - Patient is admitted to ICU - Patient took a turn for worse last night and went in to see regarding and shock secondary to stent occlusion - Right now the patient is to be admitted, on pressors and sedation - No acute interventions because of her condition right now as per cardiology - Family made her DO NOT RESUSCITATE comfort - She probably will be made hospice once one of her family members comes in and will be terminally weaned Time with Patient: Greater than 30
[2018-11-26] MEDS: METOPROLOL TARTRATE 25 MG TAB PO SCH (12:03)
[2018-11-26] MEDS: FERROUS SULFATE 325 MG TAB PO SCH (12:03)
[2018-11-26] MEDS: ASPIRIN 81 MG PO SCH (12:03)
--- NOTE | 2018-11-26 12:09 | ECHOF ---
Referral Reason:Chest pain and cardiomyopathy MEASUREMENTS -------- HEIGHT: 157.5 cm WEIGHT: 81.7 kg BP: 105/51 RVIDd: 3.1 cm (< 3.3) IVSd: 1.3 cm (0.6 - 1.1) LVIDd: 4.2 cm (3.9 - 5.3) LVPWd: 1.4 cm (0.6 - 1.1) IVSs: 1.6 cm LVIDs: 3.7 cm LVPWs: 1.4 cm LAESV Index (A-L): 35.28 ml/m Ao Diam: 2.0 cm (2.0 - 3.7) AV Cusp: 1.2 cm (1.5 - 2.6) LA Diam: 4.0 cm (2.7 - 3.8) MV EXCURSION: 8.677 mm (> 18.000) MV EF SLOPE: 45 mm/s (70 - 150) EPSS: 0.9 cm MV E Jian: 0.98 m/s MV DecT: 203 ms MV A Jian: 0.21 m/s MV E/A Ratio: 4.63 AV maxP.32 mmHg AV meanP.68 mmHg AR PHT: 264 ms RAP: 20.00 mmHg RVSP: 63.68 mmHg FINDINGS -------- Sinus rhythm. Resting tachycardia (HR>100bpm). This was a technically adequate study. The left ventricular size is normal. There is mild concentric left ventricular hypertrophy. Overa ll left ventricular systolic function is severely impaired with, an EF between 20 - 25 %. The right ventricle is normal in size. LA is moderately dilated 34-39 ml/m2 The right atrial size is normal. Aortic valve is trileaflet and is mildly thickened. There is mild aortic valve sclerosis. There i s mild aortic regurgitation. Peak/mean gradient across the Aortic Valve is 8.32mmHg / 4.68mmHg. P ossible Aortic stenosis. Unable to get high gradient. Valve looks tight. The mitral valve leaflets are mildly thickened. Moderate mitral annular calcification present. Se dede mitral regurgitation is present. [id number] tricuspid regurgitation present. There is moderate pulmonary hypertension. The r ight ventricular systolic pressure, as measured by Doppler, is 63.68mmHg. The pulmonic valve was not well visualized. There is no pulmonic regurgitation present. The aortic root size is normal. The inferior vena cava is dilated with no significant inspiratory collapse which is consistent estima antoinette right atrial pressure of >20 mmHg. There is no pericardial effusion. CONCLUSIONS -------- 1. Sinus rhythm. 2. Resting tachycardia (HR>100bpm). 3. This was a technically adequate study. 4. The left ventricular size is normal. 5. There is mild concentric left ventricular hypertrophy. 6. Overall left ventricular systolic function is severely impaired with, an EF between 20 - 25 %. 7. LA is moderately dilated 34-39 ml/m2 8. Aortic valve is trileaflet and is mildly thickened. 9. There is mild aortic valve sclerosis. 10. There is mild aortic regurgitation. 11. Peak/mean gradient across the Aortic Valve is 8.32mmHg / 4.68mmHg. 12. Possible Aortic stenosis. Unable to get high gradient. Valve looks tight. 13. The mitral valve leaflets are mildly thickened. 14. Moderate mitral annular calcification present. 15. Severe mitral regurgitation is present. 16. [id number] tricuspid regurgitation present. 17. There is moderate pulmonary hypertension. 18. There is no pulmonic regurgitation present. 19. The aortic root size is normal. 20. The inferior vena cava is dilated with no significant inspiratory collapse which is consistent es timated right atrial pressure of >20 mmHg. 21. There is no pericardial effusion. CASINO CASHIER MANAGER: Emy Thomas RDCS
[2018-11-26] MEDS ORDERED: CALCIUM CHLORIDE 100 MG/ML 10 ML SYRINGE ONE (13:14)
--- NOTE | 2018-11-26 14:16 | P.PN ---
Subjective Progress Note Date: 11/26/18 This is a 78-year-old female with history of coronary artery disease and previous bypass surgery and also percutaneous revascularization and severe peripheral vascular disease with prior fem-fem bypass who was admitted to the hospital with ST elevation myocardial infarction. She had a cardiac catheterization by Dr. Noble through left radial approach. She was found to have subtotal occluded vein graft to the PDA at the site of the previous stent placement. Patient had a repeat stent placement. Patient is feeling better. Denies any chest pain. Doesn't complain of any shortness of breath. Vital signs are stable. The puncture site appears to be stable. Will increase her activity. We'll get an echo [place] tomorrow. Continue current medical therapy. Possible transfer to selective care tomorrow: 11/26/2018: This 78-year-old female was admitted with acute ST elevation myocardial infarction and underwent stent placement of the graft to the PDA branch. The stent placement was done proximal to the previous stent. Patient remained stable. Yesterday morning. Her latest morning patient complained of some abdominal pain and subsequently became hypotensive and bradycardic. Blood work showed acidosis and evidence of acute renal failure with hyperkalemia. Computed tomography scan of the abdomen showed small M at the free fluid. Patient was started on IV Levophed. Bedside echocardiogram showed severely impaired LV function with moderate to severe mitral regurgitation. Patient's family was at bedside. They're deciding whether the patient should be considered for comfort care. Overall her prognosis is very poor Objective - Vital Signs Vital signs: Vital Signs Temp 98.5 F 11/26/18 04:00 Pulse 75 11/26/18 12:00 Resp 24 11/26/18 12:00 BP 99/66 11/26/18 12:00 Pulse Ox 22 L 11/26/18 10:00 Intake & Output 11/25/18 11/26/18 11/26/18 18:59 06:59 18:59 Intake Total 1580 1000 750 Output Total 455 407 5 Balance 1125 593 745 Weight 81.647 kg Intake: IV 1100 1000 750 Sodium Chloride 0.9% 1, 1100 1000 000 ml @ 100 mls/hr IV . Q10H [facility] Rx#:[id number] bicarb 750 Oral 480 Output: Urine 305 167 5 Urine/Stool Mix 240 Emesis 150 Other: Voiding Method Indwelling Catheter Indwelling Catheter ABP, PAP, CO, CI - Last Documented Arterial Blood Pressure 34/34 - Exam GENERAL EXAM: Patient is intubated and unresponsive. HEENT: Normocephalic. NECK: No masses, no nuchal rigidity. CHEST: No chest wall deformity. LUNGS: Diminished breath sounds HEART: S1 and S2 normal ABDOMEN: No hepatosplenomegaly, normal bowel sounds, no guarding or rigidity. SKIN: No rashes CENTRAL NERVOUS SYSTEM: Deferred EXTREMITIES: No cyanosis, clubbing or edema. History of amputation. PUNCTURE SITE: The left radial puncture site appears to be stable without any hematoma - Labs CBC & Chem 7: 11/26/18 07:15 11/26/18 07:15 Labs: Abnormal Lab Results - Last 24 Hours (Table) 11/25/18 11/25/18 11/25/18 Range/Units 16:57 19:52 20:51 WBC (3.8-10.6) k/uL RBC (3.80-5.40) m/uL Hgb (11.4-16.0) gm/dL Hct (34.0-46.0) % MCV (80.0-100.0) fL MCHC (31.0-37.0) g/dL RDW (11.5-15.5) % Neutrophils # (1.3-7.7) k/uL Neutrophils # (Manual) (1.3-7.7) k/uL Monocytes # (Manual) (0-1.0) k/uL Myelocytes # (Manual) (0) k/uL Nucleated RBCs (0-0) /100 WBC PT (9.0-12.0) sec INR (<1.2) APTT (22.0-30.0) sec ABG pH (7.35-7.45) ABG pCO2 (35-45) mmHg ABG pO2 (83-108) mmHg ABG HCO3 (21-25) mmol/L ABG Total CO2 (19-24) mmol/L ABG O2 Saturation (94-97) % ABG Lactic Acid (0.5-1.6) mmol/L Sodium (137-145) mmol/L Potassium 6.6 H* (3.5-5.1) mmol/L Chloride (98-107) mmol/L Carbon Dioxide 16 L (22-30) mmol/L BUN 42 H (7-17) mg/dL Creatinine 2.07 H (0.52-1.04) mg/dL Glucose 176 H (74-99) mg/dL POC Glucose (mg/dL) 208 H 181 H (75-99) mg/dL Plasma Lactic Acid Amado (0.7-2.0) mmol/L Calcium 8.2 L (8.4-10.2) mg/dL AST (14-36) U/L ALT (9-52) U/L Total Protein (6.3-8.2) g/dL Albumin (3.5-5.0) g/dL Amylase (30-110) U/L 11/26/18 11/26/18 11/26/18 Range/Units 02:05 02:30 02:30 WBC 16.8 H (3.8-10.6) k/uL RBC 2.53 L (3.80-5.40) m/uL Hgb 7.7 L (11.4-16.0) gm/dL Hct 27.2 L (34.0-46.0) % MCV 107.3 H D (80.0-100.0) fL MCHC 28.3 L (31.0-37.0) g/dL RDW 16.1 H (11.5-15.5) % Neutrophils # (1.3-7.7) k/uL Neutrophils # (Manual) 13.44 H (1.3-7.7) k/uL Monocytes # (Manual) 1.85 H (0-1.0) k/uL Myelocytes # (Manual) 0.17 H (0) k/uL Nucleated RBCs 1 H (0-0) /100 WBC PT (9.0-12.0) sec INR (<1.2) APTT (22.0-30.0) sec ABG pH (7.35-7.45) ABG pCO2 (35-45) mmHg ABG pO2 (83-108) mmHg ABG HCO3 (21-25) mmol/L ABG Total CO2 (19-24) mmol/L ABG O2 Saturation (94-97) % ABG Lactic Acid (0.5-1.6) mmol/L Sodium (137-145) mmol/L Potassium 5.4 H (3.5-5.1) mmol/L Chloride (98-107) mmol/L Carbon Dioxide 14 L (22-30) mmol/L BUN 43 H (7-17) mg/dL Creatinine 2.56 H (0.52-1.04) mg/dL Glucose 163 H (74-99) mg/dL POC Glucose (mg/dL) 175 H (75-99) mg/dL Plasma Lactic Acid Amado (0.7-2.0) mmol/L Calcium 8.2 L (8.4-10.2) mg/dL AST 1119 H (14-36) U/L ALT 1079 H (9-52) U/L Total Protein 6.2 L (6.3-8.2) g/dL Albumin 3.4 L (3.5-5.0) g/dL Amylase <30 L (30-110) U/L 11/26/18 11/26/18 11/26/18 Range/Units 02:30 04:06 04:35 WBC (3.8-10.6) k/uL RBC (3.80-5.40) m/uL Hgb (11.4-16.0) gm/dL Hct (34.0-46.0) % MCV (80.0-100.0) fL MCHC (31.0-37.0) g/dL RDW (11.5-15.5) % Neutrophils # (1.3-7.7) k/uL Neutrophils # (Manual) (1.3-7.7) k/uL Monocytes # (Manual) (0-1.0) k/uL Myelocytes # (Manual) (0) k/uL Nucleated RBCs (0-0) /100 WBC PT (9.0-12.0) sec INR (<1.2) APTT (22.0-30.0) sec ABG pH 7.18 L* (7.35-7.45) ABG pCO2 30 L (35-45) mmHg ABG pO2 (83-108) mmHg ABG HCO3 11 L (21-25) mmol/L ABG Total CO2 12 L (19-24) mmol/L ABG O2 Saturation 97.3 H (94-97) % ABG Lactic Acid (0.5-1.6) mmol/L Sodium (137-145) mmol/L Potassium (3.5-5.1) mmol/L Chloride (98-107) mmol/L Carbon Dioxide (22-30) mmol/L BUN (7-17) mg/dL Creatinine (0.52-1.04) mg/dL Glucose (74-99) mg/dL POC Glucose (mg/dL) 137 H (75-99) mg/dL Plasma Lactic Acid Amado 10.7 H* (0.7-2.0) mmol/L Calcium (8.4-10.2) mg/dL AST (14-36) U/L ALT (9-52) U/L Total Protein (6.3-8.2) g/dL Albumin (3.5-5.0) g/dL Amylase (30-110) U/L 11/26/18 11/26/18 11/26/18 Range/Units 05:38 06:50 07:15 WBC (3.8-10.6) k/uL RBC (3.80-5.40) m/uL Hgb (11.4-16.0) gm/dL Hct (34.0-46.0) % MCV (80.0-100.0) fL MCHC (31.0-37.0) g/dL RDW (11.5-15.5) % Neutrophils # (1.3-7.7) k/uL Neutrophils # (Manual) (1.3-7.7) k/uL Monocytes # (Manual) (0-1.0) k/uL Myelocytes # (Manual) (0) k/uL Nucleated RBCs (0-0) /100 WBC PT (9.0-12.0) sec INR (<1.2) APTT (22.0-30.0) sec ABG pH 7.01 L* (7.35-7.45) ABG pCO2 25 L (35-45) mmHg ABG pO2 292 H (83-108) mmHg ABG HCO3 6 L* (21-25) mmol/L ABG Total CO2 7 L (19-24) mmol/L ABG O2 Saturation 100.0 H (94-97) % ABG Lactic Acid 14.6 H* (0.5-1.6) mmol/L Sodium 146 H (137-145) mmol/L Potassium 6.7 H* (3.5-5.1) mmol/L Chloride 112 H (98-107) mmol/L Carbon Dioxide 19 L (22-30) mmol/L BUN 43 H (7-17) mg/dL Creatinine 2.51 H (0.52-1.04) mg/dL Glucose (74-99) mg/dL POC Glucose (mg/dL) (75-99) mg/dL Plasma Lactic Acid Amado (0.7-2.0) mmol/L Calcium 11.1 H (8.4-10.2) mg/dL AST (14-36) U/L ALT (9-52) U/L Total Protein (6.3-8.2) g/dL Albumin (3.5-5.0) g/dL Amylase (30-110) U/L 11/26/18 11/26/18 11/26/18 Range/Units 07:15 07:15 07:19 WBC 16.4 H (3.8-10.6) k/uL RBC 2.18 L (3.80-5.40) m/uL Hgb 6.6 L* (11.4-16.0) gm/dL Hct 21.9 L (34.0-46.0) % MCV 100.6 H D (80.0-100.0) fL MCHC 30.2 L (31.0-37.0) g/dL RDW 16.2 H (11.5-15.5) % Neutrophils # 13.3 H (1.3-7.7) k/uL Neutrophils # (Manual) (1.3-7.7) k/uL Monocytes # (Manual) (0-1.0) k/uL Myelocytes # (Manual) (0) k/uL Nucleated RBCs (0-0) /100 WBC PT 17.3 H (9.0-12.0) sec INR 1.7 H (<1.2) APTT 19.0 L (22.0-30.0) sec ABG pH 7.17 L* (7.35-7.45) ABG pCO2 23 L (35-45) mmHg ABG pO2 128 H (83-108) mmHg ABG HCO3 8 L* (21-25) mmol/L ABG Total CO2 9 L (19-24) mmol/L ABG O2 Saturation 98.7 H (94-97) % ABG Lactic Acid (0.5-1.6) mmol/L Sodium (137-145) mmol/L Potassium (3.5-5.1) mmol/L Chloride (98-107) mmol/L Carbon Dioxide (22-30) mmol/L BUN (7-17) mg/dL Creatinine (0.52-1.04) mg/dL Glucose (74-99) mg/dL POC Glucose (mg/dL) (75-99) mg/dL Plasma Lactic Acid Amado (0.7-2.0) mmol/L Calcium (8.4-10.2) mg/dL AST (14-36) U/L ALT (9-52) U/L Total Protein (6.3-8.2) g/dL Albumin (3.5-5.0) g/dL Amylase (30-110) U/L Assessment and Plan (1) Anemia Current Visit: Yes Status: Acute Code(s): D64.9 - ANEMIA, UNSPECIFIED SNOMED Code(s): 470358659 (2) ST elevation myocardial infarction (STEMI) Current Visit: Yes Status: Acute Code(s): I21.3 - ST ELEVATION (STEMI) MYOCARDIAL INFARCTION OF [facility] SITE SNOMED Code(s): 441576202 (3) Hypertension Current Visit: No Status: Acute Code(s): I10 - ESSENTIAL (PRIMARY) HYPERTENSION SNOMED Code(s): 39517706 (4) PAD (peripheral artery disease) Current Visit: No Status: Acute Code(s): I73.9 - PERIPHERAL VASCULAR DISEASE , UNSPECIFIED SNOMED Code(s): 330010111 (5) Cardiac shock syndrome Current Visit: Yes Status: Acute Code(s): R57.0 - CARDIOGENIC SHOCK SNOMED Code(s): 62747952 (6) Acute renal failure Current Visit: Yes Status: Acute Code(s): N17.9 - ACUTE KIDNEY FAILURE, UNSPECIFIED SNOMED Code(s): 48566340 (7) Cardiomyopathy Current Visit: Yes Status: Acute Code(s): I42.9 - CARDIOMYOPATHY, UNSPECIFIED SNOMED Code(s): 89494465 (8) Acute respiratory failure Current Visit: Yes Status: Acute Code(s): J96.00 - ACUTE RESPIRATORY FAILURE , UNSP W HYPOXIA OR HYPERCAPNIA SNOMED Code(s): 67764118 Plan: Patient's clinical status has worsened and became critical. Patient is showing signs of chronic shock, renal failure, acidosis and respiratory failure. Patient's family wants to consider for comfort care. We'll continue current management. If necessary, we'll get nephrology consultation.
[2018-11-26 15:44] VITALS: BP 63/52; PULSE 71; RESP 30
[2018-11-28 09:59] LABS: ABG HCO3 6 mmol/L (21-25); ABG PH 7.01 (7.35-7.45)
--- NOTE | 2018-11-29 22:37 | CDI ---
Date: 11/29/2018 9:43:55 PM From: VALERIE Orozco,CCDS,RN Email: : Admit Date: 11/25/2018 12:38:00 AM Patient Name: Sujey Washburn Visit Number: [id number] Discharge Date: 11/26/2018 1:49:00 PM ATTENTION: The Clinical Documentation Specialists (CDI) and [facility] Coding Staff appreciate your assistance in clarifying documentation. Please respond to the clarification below the line at the bottom and electronically sign. The CDI & [facility] Coding staff will review the response and follow-up if needed. Please note: Queries are made part of the Legal Health Record. If you have any questions, please contact the author of this message via ITS. Dr. Edilson Noble Complication of stent, artery occlusion. shock 2nd to stent occlusion is documented 11/26/2018. Patients Admitting Diagnosis:STEMI Cardiac Cath: Severe triple vessels CAD, Patent MARTI to LAD, Patent saphenous vein graft to the obtuse marginal branch with significant stenosis at distal ansatomotic site with small size vessel, Patent saphenous vein graft to the PDA with subtotally occluded ostium. Procedure performed: Successful stenting of a totally occluded ostium of the saphenous vein graft to the PDA at the site of the prior stent with reduction of stenosis from 100% to 0%. History/Risk Factors: a 78-year-old female with CAD s/p CABG, and PTCA, Severe PVD, Amputation and fem-fem bypass, CVA,DM, HTN, CHF Clinical Indicators PN 3/4 notes cardiology saw pt this am and suggested that the patient has an occluded stent. PNs 3/4 note pt with cardiogenic shock, acute and recurrent [place] with ST seg elevations mainly in the inferior leads, Complication of stent, artery occlusion. shock 2nd to stent occlusion Treatment: PTCA , nitro ,pt required intubation and pressors for cardiogenic shock, ATN and shock liver, In order to accurately reflect this patients severity of illness, please render your opinion on the stent occlusion. Complication of stent, stent occlusion occurring in stent(s) placed on 11/25/2018? ?YES ?No XXX ?Other, please specify ?Unable to determine (Last Revision: December 2017) MTDD
--- NOTE | 2018-11-29 23:13 | CDI ---
Documentation Clarification Form Date: 11/29/2018 10:47:37 PM From: Marisol PADILLA,CCDS,RN Email: [email or web address] Admit Date: 11/25/2018 12:38:00 AM Patient Name: Sujey Washburn Visit Number: [id number] Discharge Date: 11/26/2018 1:49:00 PM ATTENTION: The Clinical Documentation Specialists (CDI) and [facility] Coding Staff appreciate your assistance in clarifying documentation. Please respond to the clarification below the line at the bottom and electronically sign. The CDI & [facility] Coding staff will review the response and follow-up if needed. Please note: Queries are made part of the Legal Health Record. If you have any questions, please contact the author of this message via ITS. Dr. Montiel: ED notes appears to be in acute heart failure was documented in the record, but is not consistently noted in subsequent documentation. VS 116/54 P 83 RR 18 99% pulse ox in ED History/Risk Factors: admitted with STEMI, Hx of [place] , CAD s/p CABG, HTN, HLD, Severe PVD, Chronic renal failure, DM, CVA, GERD, Cardiomyopathy Clinical Indicators: BNP [id number] in the setting of STEMI, ATN, rales appreciated bilateral lungs in ED PN 3/ notes cardiomyopathy Echo on 11/26 Pulmonary HTN, Possible Aortic stenosis, EF 20-25% Chest xray 11/25 cardiomegaly, minimal pulmonary vascular congestion on 11/26. Treatment: Cardiac cath with stenting, Please render your opinion on ED impression of acute heart failure? Acute Systolic CHF Present/active this admission Acute Diastolic CHF CHF ruled out Other, please specify Clinically unable to determine (Last Revision: June 2018-New) Unable to determine. MTDD
== END 2018-11-26 13:49 | disposition expired | DRG 246 ==
LOC: EC 23:46 → 2SICU 11-25 00:38
PROVIDERS: ADMIT Hospitalist; ATTEND Hospitalist
PROC: 4A023N7 Measurement of Cardiac Sampling and Pressure, Left Heart, Percutaneous Approach (ICD-10-PCS; 2018-11-25)
PROC: B2131ZZ Fluoroscopy of Multiple Coronary Artery Bypass Grafts using Low Osmolar Contrast (ICD-10-PCS; 2018-11-25)
PROC: B2111ZZ Fluoroscopy of Multiple Coronary Arteries using Low Osmolar Contrast (ICD-10-PCS; 2018-11-25)
PROC: 027035Z Dilation of Coronary Artery, One Artery with Two Drug-eluting Intraluminal Devices, Percutaneous Approach (ICD-10-PCS; principal; 2018-11-25 00:55)
PROC: 0BH17EZ Insertion of Endotracheal Airway into Trachea, Via Natural or Artificial Opening (ICD-10-PCS; 2018-11-26)
PROC: 5A1935Z Respiratory Ventilation, Less than 24 Consecutive Hours (ICD-10-PCS; 2018-11-26)
PROC: 05HN33Z Insertion of Infusion Device into Left Internal Jugular Vein, Percutaneous Approach (ICD-10-PCS; 2018-11-26)
DX: I21.19 ST elevation (STEMI) myocardial infarction involving other coronary artery of inferior wall (principal); K72.00 Acute and subacute hepatic failure without coma; J96.01 Acute respiratory failure with hypoxia; J96.02 Acute respiratory failure with hypercapnia; N17.0 Acute kidney failure with tubular necrosis; K55.039 Acute (reversible) ischemia of large intestine, extent unspecified; I44.2 Atrioventricular block, complete; E87.2 Acidosis; I42.9 Cardiomyopathy, unspecified; I13.0 Hypertensive heart and chronic kidney disease with heart failure and stage 1 through stage 4 chronic kidney disease, or unspecified chronic kidney disease; I25.810 Atherosclerosis of coronary artery bypass graft(s) without angina pectoris; I97.190 Other postprocedural cardiac functional disturbances following cardiac surgery; R57.0 Cardiogenic shock; E87.5 Hyperkalemia; E11.40 Type 2 diabetes mellitus with diabetic neuropathy, unspecified; I50.9 Heart failure, unspecified; I11.0 Hypertensive heart disease with heart failure; E11.51 Type 2 diabetes mellitus with diabetic peripheral angiopathy without gangrene; E11.22 Type 2 diabetes mellitus with diabetic chronic kidney disease; D64.9 Anemia, unspecified; R00.1 Bradycardia, unspecified; I34.0 Nonrheumatic mitral (valve) insufficiency; I21.A9 Other myocardial infarction type; R00.0 Tachycardia, unspecified; K21.9 Gastro-esophageal reflux disease without esophagitis; D72.829 Elevated white blood cell count, unspecified; Z66 Do not resuscitate; N18.9 Chronic kidney disease, unspecified; Z51.5 Encounter for palliative care; I25.2 Old myocardial infarction; E78.5 Hyperlipidemia, unspecified; Z68.32 Body mass index [BMI] 32.0-32.9, adult; E66.9 Obesity, unspecified; Z79.899 Other long term (current) drug therapy; Z79.82 Long term (current) use of aspirin; Z79.02 Long term (current) use of antithrombotics/antiplatelets; Z86.14 Personal history of Methicillin resistant Staphylococcus aureus infection; Z86.73 Personal history of transient ischemic attack (TIA), and cerebral infarction without residual deficits; Z98.51 Tubal ligation status; Z89.422 Acquired absence of other left toe(s); Z89.421 Acquired absence of other right toe(s); Z87.891 Personal history of nicotine dependence; Z89.512 Acquired absence of left leg below knee; Z88.5 Allergy status to narcotic agent; Z88.8 Allergy status to other drugs, medicaments and biological substances; Z80.3 Family history of malignant neoplasm of breast
CPT/HCPCS: 36415; 36600; 71045; 71046; 74176; 80048; 80053; 81001; 82150; 82805; 83605; 83690; 83735; 83880; 84484; 85025; 85610; 85730; 87040; 93005; 93306; 93459; 94002; 94640; 96374; 99285; C1874